=== PATIENT | male | born 1960 | race Caucasian/White ===

== ENCOUNTER 2016-07-19 11:34 | Emergency (ER) | payer OTHER ==
[2016-07-19] MEDS ORDERED: METOPROLOL TARTRATE INJ 5 MG/5 ML VIAL IV ONE ×2 (12:03→12:04)
[2016-07-19] MEDS ORDERED: ALTEPLASE 100 ML ONE (12:12)
[2016-07-19] MEDS ORDERED: SODIUM CHLORIDE 0.9% 1000ML 1,000 ML ONE (12:15)
[2016-07-19] MEDS ORDERED: niCARdipine HCL 2.5 MG/ML AMP IVPB ONE (12:18)
[2016-07-19] MEDS ORDERED: SODIUM CHLORIDE 0.9% 250ML 250 ML ONE (12:19)
--- NOTE | 2016-07-19 12:24 | CT ---
EXAM DESCRIPTION: CT HEAD WITHOUT IV CONTRAST CLINICAL HISTORY: slurred speech COMPARISON: None available TECHNIQUE: Non contrast cranial CT FINDINGS: Ventricles and sulci are unremarkable. There is no hemorrhage or mass. There are no white matter abnormalities detected. The calvarium is unremarkable. The visualized paranasal sinuses and the mastoids are clear. IMPRESSION: No acute intracranial findings. Electronically signed by: Julien Kong MD 07/19/2016 12:23
[2016-07-19] MEDS ORDERED: niCARdipine HCL 25 MG in SODIUM CHLORIDE 0.9% 250ML 240 ML IVPB SCH (12:25)
--- NOTE | 2016-07-19 12:29 | ED.PDOC ---
History of Present Illness - General Chief Complaint: Neuro Symptoms/Deficits Stated Complaint: stroke-like sx's Time Seen by Provider: 07/19/16 12:02 Source: patient Exam Limitations: clinical condition - History of Present Illness Initial Comments: the patient is a 56-year-old male presenting to the emergency room due to slurring of his speech along with progressive weakness of his right side with the upper extremity more so than the lower extremity for approximately 2 and half hours prior to arrival. He denies syncope. No headache. No pain. Blood pressure is significantly elevated at around 220 systolic and upon arrival. Glucose is 250. The patient knows where he is and what is going on. He does have some significant dysarthria as well as some mild expressive aphasia. There is some mild asymmetry in his palatal elevation and mild decrease in his gag reflex. Sensation appears to be mildly decreased in the right hand but otherwise normal throughout. He does not appear to have a visual field defects. he is currently denying having had a stroke in the past. He denies being on significant blood thinners. He denies having recent bleeding problems. No major surgeries recently. Severity: severe Improving Factors: nothing Worsening Factors: nothing Associated Symptoms: weakness Allergies/Adverse Reactions: Allergies Oxytetracycline [From Terramycin Ointment] Allergy (Verified 12/28/14 14:17) Polymyxin B [From Terramycin Ointment] Allergy (Verified 12/28/14 14:17) Penicillins Adverse Reaction (Severe, Verified 12/28/14 14:08) Home Medications: Ambulatory Orders Amlodipine Besylate [Norvasc] 10 mg PO DAILY 12/28/14 Bupropion HCl [Wellbutrin] 100 mg PO DAILY 12/28/14 Clindamycin HCl [Cleocin] 150 mg PO Q6HR #40 cap 12/28/14 Glimepiride 4 mg PO DAILY 12/28/14 Sulfa/Trimeth 800/160 (Ds) Tab [Bactrim DS Tab] 1 ea PO BID #20 tab 12/28/14 Review of Systems - Review of Systems Constitutional: States: weakness EENTM: States: no symptoms reported Respiratory: States: no symptoms reported Cardiology: States: no symptoms reported Gastrointestinal/Abdominal: States: no symptoms reported Genitourinary: States: no symptoms reported Musculoskeletal: States: no symptoms reported Neurological: States: anxiety, numbness, weakness All other Systems: No Change from Baseline Past Medical History (General) - Patient Medical History Hx Stroke: No Hx Congestive Heart Failure: No Hx Hypertension: Yes Hx Diabetes: Yes Hx Gastroesophageal Reflux: - NIDDM Hx Cancer: No Hx Hepatitis C: No - Vaccination History Hx Pneumococcal Vaccination: Yes - Social History Hx Tobacco Use: No Hx Chewing Tobacco Use: No Hx Alcohol Use: No Hx Substance Use: No Hx Substance Use Treatment: No Hx Depression: No Hx Physical Abuse: No Hx Emotional Abuse: No Hx Suspected Abuse: No - Female History Patient : No Family Medical History - Family History Father Hx Family Hypertension: Yes - BOTH PARENTS Hx Family Diabetes: Yes - MOTHER Hx Family Cancer: Yes - ESOPHAGUS Hx Family;Other: MOTHER ALSO HAD STROKE. Physical Exam - Physical Exam General Appearance: Alert, Anxious Eye Exam: bilateral normal Ears, Nose, Throat: hearing grossly normal, other - mild asymmetry and palatal elevation. Mild decrease in gag reflex. Neck: full range of motion, supple Respiratory: chest non-tender, lungs clear, normal breath sounds, no respiratory distress, no accessory muscle use Cardiovascular/Chest: normal peripheral pulses, regular rate, rhythm, no edema Peripheral Pulses: radial,right: 2+, radial,left: 2+ Gastrointestinal/Abdominal: non tender, soft - morbidly obese Rectal Exam: deferred Back Exam: normal inspection Extremity: normal range of motion, non-tender, no calf tenderness, normal capillary refill, other - mild swelling bilaterally. Neurologic: alert, oriented x 3, aphasia, motor weakness - to the right upper and lower extremities., sensory deficit - rimarily to the right upper extremity. Skin Exam: normal color Comments: Vital Signs - 24 hr 07/19/16 11:35 Pulse Rate [ 101 H Left Radial] Respiratory 20 Rate Blood Pressure 159/93 [Left Arm] O2 Sat by Pulse 95 Oximetry repeat blood pressures have been significantly higher. Systolics have been closer to 220. Progress - Progress Progress: 07/19/16 12:33 the patient is a 56-year-old male presenting to the emergency room secondary to symptoms consistent with stroke with right-sided deficits primarily as well as dysarthria and expressive aphasia. Stroke scale measures up to 10. The patient will be transferred to original stroke center. The patient will receive TPA once her blood pressures are back in a safer range. He is approaching 4 hour russ. Mental status appears stable. He does appear to be able to protect his airway. Transfer for higher level of care. - Results/Orders Results/Orders: Laboratory Tests 07/19/16 07/19/16 11:43 12:00 WBC 9.8 RBC 5.00 Hgb 15.0 Hct 44.2 MCV 88.5 MCH 30.0 MCHC 34.0 RDW 12.4 Plt Count 264 MPV 8.5 Absolute Neuts (auto) 6.20 Absolute Lymphs (auto) 2.50 Absolute Monos (auto) 0.80 Absolute Eos (auto) 0.20 Absolute Basos (auto) 0.10 Neutrophils % 63.1 Lymphocytes % 25.1 Monocytes % 8.7 Eosinophils % 2.1 Basophils % 1.0 PT 10.3 INR 0.910 PTT (SP) 29.8 Sodium 137 Potassium 3.4 L Chloride 105 Carbon Dioxide 23 Anion Gap 12.4 BUN 15 Creatinine 0.60 BUN/Creatinine Ratio 25.0 H POC Glucose 259 H Random Glucose 327 H Serum Osmolality 287.3 Calcium 8.6 Magnesium 1.7 L Total Bilirubin 1.2 H Direct Bilirubin 0.2 Indirect Bilirubin 1.0 H AST 27 ALT 21 Alkaline Phosphatase 96 Creatine Kinase 134 Serum Total Protein 7.[address] shows no acute changes. critical care time spent on not otherwise billable procedures 45 minutes - EKG/XRAY/CT CT Ordered: Yes Departure - Departure Clinical Impression: Cerebrovascular accident Qualifiers: CVA mechanism: unspecified Qualifier Code: (I63.9) Cerebral infarction, unspecified Disposition: Transfer to Hospital Home Medications: Ambulatory Orders Amlodipine Besylate [Norvasc] 10 mg PO DAILY 12/28/14 Bupropion HCl [Wellbutrin] 100 mg PO DAILY 12/28/14 Clindamycin HCl [Cleocin] 150 mg PO Q6HR #40 cap 12/28/14 Glimepiride 4 mg PO DAILY 12/28/14 Sulfa/Trimeth 800/160 (Ds) Tab [Bactrim DS Tab] 1 ea PO BID #20 tab 12/28/14 Transfer to Outside Facility - Transfer Information Accepting Provider:: dr cleaning Accepting Facility: [facility] Reason for Transfer: required specialist not available
[2016-07-19] MEDS ORDERED: ALTEPLASE (TPA) 100 MG/100 ML VIAL IV ONE (12:30)
[2016-07-19] MEDS ORDERED: INSULIN, REG.(HUMAN) 100 U/ML VIAL SUBCU ONE (12:39)
[2016-07-19] MEDS ORDERED: SODIUM CHLORIDE 0.9% 1000ML 1,000 ML IVS ONE (13:02)
[2016-07-19 13:32] VITALS: TEMP 97.8
[2016-07-19 13:46] VITALS: BP 233/108; O2SAT 97
[2016-07-21] MEDS ORDERED: ALTEPLASE (TPA) 100 MG/100 ML VIAL IV ONE (12:33)
== END 2016-07-19 13:33 | disposition short-term general hospital (02) ==
LOC: ER 11:34
DX: I63.9 Cerebral infarction, unspecified (principal); E11.9 Type 2 diabetes mellitus without complications; I10 Essential (primary) hypertension; Z82.3 Family history of stroke; Z88.0 Allergy status to penicillin; Z88.8 Allergy status to other drugs, medicaments and biological substances; Z79.899 Other long term (current) drug therapy
CPT/HCPCS: 36415; 70450; 80048; 80076; 82550; 82553; 82948; 84484; 85025; 85610; 85730; 93005; J2060; J2997; J7030; J7050

== ENCOUNTER 2017-08-12 18:16 | Emergency (ER) | payer BC, OTHER ==
[2017-08-12 18:34] VITALS: O2SAT 97
--- NOTE | 2017-08-12 18:51 | ED.PDOC ---
History of Present Illness - General Chief Complaint: GI Problem Stated Complaint: foreign object to rectum Time Seen by Provider: 08/12/17 18:46 Information Source: patient - History of Present Illness Initial Comments: Kyler Garza 57 y/o male stated had inserted a footlong flashlight inside his rectum 1 1/2 hours ago Abdominal Pain Onset Location: other - see hpi Pain Radiation: no radiation Improving Factors: nothing Worsening Factors: nothing Associated Symptoms: other - pain rectum Review of Systems - Review of Systems Constitutional: States: no symptoms reported EENTM: States: no symptoms reported Respiratory: States: no symptoms reported Cardiology: States: no symptoms reported Gastrointestinal/Abdominal: States: see HPI Genitourinary: States: no symptoms reported Musculoskeletal: States: no symptoms reported Skin: States: no symptoms reported All other Systems: Reviewed and Negative, No Change from Baseline Past Medical History (General) - Patient Medical History Hx Stroke: Yes Hx Congestive Heart Failure: No Hx Hypertension: Yes Hx Diabetes: Yes Hx Gastroesophageal Reflux: - NIDDM Hx Cancer: No Hx Hepatitis C: No Surgical History: other - lower back - Vaccination History Hx Influenza Vaccination: Yes Hx Pneumococcal Vaccination: Yes - Social History Hx Tobacco Use: No Hx Chewing Tobacco Use: No Hx Alcohol Use: No Hx Substance Use: No Hx Substance Use Treatment: No Hx Depression: No Hx Physical Abuse: No Hx Emotional Abuse: No Hx Suspected Abuse: No - Female History Patient : No Family Medical History - Family History Father Hx Family Hypertension: Yes - BOTH PARENTS Hx Family Diabetes: Yes - MOTHER Hx Family Cancer: Yes - ESOPHAGUS Hx Family;Other: MOTHER ALSO HAD STROKE. Physical Exam - Physical Exam General Appearance: Alert, Anxious, No apparent distress Eyes, Ears, Nose, Throat Exam: normal ENT inspection Neck: non-tender, supple Respiratory: lungs clear, normal breath sounds Cardiovascular/Chest: normal peripheral pulses, regular rate, rhythm, no murmur Peripheral Pulses: No deficit Gastrointestinal/Abdominal: non tender, soft, no organomegaly Rectal Exam: other - hard metallic rounded FB 3 cms. from anal verge Back Exam: no CVA tenderness, no vertebral tenderness Extremity: no pedal edema, no calf tenderness Neurologic: alert, oriented x 3 Skin Exam: normal color, warm/dry Progress - Progress Progress: 08/12/17 19:38 Last Vital Signs Temp 98.1 F 08/12/17 18:25 Pulse 102 H 08/12/17 18:25 Resp 20 08/12/17 18:25 BP 140/82 08/12/17 18:25 Pulse Ox 97 08/12/17 18:25 - Results/Orders Results/Orders: Several attempts at removing the impacted foreign object in his rectum unable to do it even when patient is bearing down;noted some rectal bleeding during the procedure. Departure - Departure Clinical Impression: Foreign body in anus and rectum, initial encounter Time of Disposition: 19:45 Disposition: Transfer to Hospital Departure Forms: Patient Portal Self Enrollment Referrals: Fdai Huerta MD [Primary Care Provider] - 1-2 Weeks Home Medications: Ambulatory Orders Amlodipine Besylate [Norvasc] 10 mg PO DAILY 12/28/14 Bupropion HCl [Wellbutrin] 100 mg PO DAILY 12/28/14 Glimepiride 4 mg PO DAILY 12/28/14 Fenofibrate [Tricor] 145 mg PO DAILY 07/19/16 Losartan Potassium 100 mg PO BID 07/19/16 Methocarbamol [Robaxin] 750 mg PO TID 07/19/16 Rosuvastatin Calcium [Crestor] 10 mg PO DAILY 07/19/16 Simvastatin [Zocor] 20 mg PO BEDTIME 07/19/16 Transfer to Outside Facility - Transfer Information Accepting Provider:: D/W Dr. De Los Santos-MARK/ Accepting Facility: [facility] Reason for Transfer: required specialist not available
[2017-08-12 20:13] VITALS: BP 129/64; TEMP 98.2
--- NOTE | 2017-08-12 20:23 | RAD ---
EXAM DESCRIPTION: Abdomen 1 View CLINICAL HISTORY: 57 years, Male, foreign body COMPARISON: None. FINDINGS: Single view frontal lower abdominal and pelvic radiograph and supine positioning. A large foreign body having the appearance of a flashlight projects over the midline pelvis and abdomen. A structure measures 25 cm in length and 6.2 cm in maximal transverse dimension. The handle of the flashlight is cranially located and the end of the flashlight (the wider portion) is distally located (closer to the anus). Limited evaluation for pneumoperitoneum. No overt pneumoperitoneum is seen. Previous lumbosacral fusion. Moderate amount of colonic stool. IMPRESSION: Large foreign body presumably in the rectum. This foreign body has the appearance of a flashlight and is oriented with the handle pointed cranially and the distal end (largest portion) pointed towards the anus. Measurements as above. Critical Communication: Emergent findings were discussed by Dr. Vaughn directly with Dr. Deshpande on 08/12/2017 8:19 PM [employer]. Electronically signed by: Helen Vaughn MD 08/12/2017 8:22 PM [employer]
== END 2017-08-12 20:26 | disposition short-term general hospital (02) ==
LOC: ER 18:16
DX: T18.5XXA Foreign body in anus and rectum, initial encounter (principal); X58.XXXA Exposure to other specified factors, initial encounter; Y92.9 Unspecified place or not applicable

== ENCOUNTER → 2018-03-01 | Outpatient (CLI) | payer BC | LOC: GMAH 11:26 | PROVIDERS: ATTEND Family Medicine | DX: Z00.00 Encounter for general adult medical examination without abnormal findings (principal); Z12.5 Encounter for screening for malignant neoplasm of prostate ==

== ENCOUNTER 2018-03-04 19:29 | Emergency (ER) | payer BC ==
--- NOTE | 2018-03-04 19:57 | ED.PDOC ---
History of Present Illness - General Chief Complaint: Back Pain or Injury Stated Complaint: low back pain/spasms Time Seen by Provider: 03/04/18 19:41 Source: patient Exam Limitations: no limitations - History of Present Illness Initial Comments: Patient presents with two days of low back pain. It goes "all the way across" and feels cramping in nature. Does not radiate down the legs. Worse with movement, especially walking, better with rest. Has had previous episodes. Sometimes he uses a walker when it hurts. He has had a CVA and occasionally uses a walker when his back pain is worse. He says he had mild right sided weakness but that has not changed today. No saddle anesthesia nor incontinence. No other complaints. Timing/Duration: other - two days Quality/Severity: moderate Back Pain Location: lumbar spine Back Pain Radiation: other - none Method of Injury/Prior Injury: unknown Improving Factors: rest Worsening Factors: movement Associated Symptoms: denies symptoms Allergies/Adverse Reactions: Allergies Cephalexin Allergy (Verified 03/04/18 19:50) Lincomycin Allergy (Verified 03/04/18 19:50) Oxytetracycline [From Terramycin Ointment] Allergy (Verified 03/04/18 19:50) Polymyxin B [From Terramycin Ointment] Allergy (Verified 03/04/18 19:50) Penicillins Adverse Reaction (Severe, Verified 03/04/18 19:50) Home Medications: Ambulatory Orders Glimepiride 4 mg PO DAILY 12/28/14 Losartan Potassium 100 mg PO BID 07/19/16 Acetaminophen W/ Codeine [Tylenol W/ CODEINE #3] 1 ea PO Q6HRS #20 03/04/18 Carvedilol 25 mg PO 03/04/18 Cyclobenzaprine HCl [Flexeril] 10 mg PO TID #20 tab 03/04/18 Doxazosin Mesylate 2 mg PO 03/04/18 Famotidine 20 mg PO 03/04/18 Furosemide 40 mg PO 03/04/18 Hydralazine HCl 50 mg PO 03/04/18 Hydrochlorothiazide 25 mg PO 03/04/18 Lantus Solostar 03/04/18 Meloxicam 7.5 mg PO 03/04/18 Nifedipine [Nifedical Xl] 60 mg PO 03/04/18 Spironolactone 25 mg PO 03/04/18 cloNIDine PATCH 0.2 MG/24HR [[id number] Patch] 03/04/18 Review of Systems - Review of Systems Constitutional: States: no symptoms reported EENTM: States: no symptoms reported Respiratory: States: no symptoms reported Cardiology: States: no symptoms reported Gastrointestinal/Abdominal: States: no symptoms reported, abdominal pain Musculoskeletal: States: see HPI Skin: States: no symptoms reported Neurological: States: see HPI Endocrine: States: no symptoms reported Hematologic/Lymphatic: States: no symptoms reported Past Medical History (General) - Patient Medical History Hx Seizures: No Hx Stroke: Yes Hx Dementia: No Hx Asthma: Yes Hx of COPD: No Hx Cardiac Disorders: Yes - stroke Jun 2016 Hx Congestive Heart Failure: No Hx Pacemaker: No Hx Hypertension: Yes Hx Thyroid Disease: No Hx Diabetes: Yes Hx Gastroesophageal Reflux: Yes - NIDDM Hx Renal Disease: No Hx Cancer: No Hx of HIV: No Hx Hepatitis C: No Hx MRSA: Yes - wound - Vaccination History Hx Tetanus, Diphtheria Vaccination: No Hx Influenza Vaccination: Yes Hx Pneumococcal Vaccination: Yes - Social History Hx Tobacco Use: No Hx Chewing Tobacco Use: No Hx Alcohol Use: No Hx Substance Use: No Hx Substance Use Treatment: No Hx Depression: No Hx Physical Abuse: No Hx Emotional Abuse: No Hx Suspected Abuse: No - Female History Patient : No Family Medical History - Family History Father Living Status: Hx Family Hypertension: Yes - BOTH PARENTS Hx Family Diabetes: Yes - MOTHER Hx Family Cancer: Yes - ESOPHAGUS Hx Family;Other: MOTHER ALSO HAD STROKE. 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 Hardware from previous surgery was intact. UA wnl. Patient was instructed to call his regular doctor in the morning to get an appointment for possible referral to a physical therapist or neurosurgeon. E.R. warnings given. Questions were elicited and answered. Patient voiced understanding and agreement with the plan. RX for Flexeril and Tylenol #3 given. Departure - Departure Clinical Impression: Back spasm Disposition: Discharge to Home or Self Care Condition: Good Departure Forms: ED Discharge - Pt. Copy, Patient Portal Self Enrollment Instructions: DI for Low Back Pain Diet: other - as directed by your regular doctor Activity: increase activity as tolerated Referrals: Fadi Huerta MD [Primary Care Provider] - 1-2 Weeks Prescriptions: Acetaminophen W/ Codeine [Tylenol W/ CODEINE #3] 1 ea PO Q6HRS #20 Cyclobenzaprine HCl [Flexeril] 10 mg PO TID #20 tab Home Medications: Ambulatory Orders Glimepiride 4 mg PO DAILY 12/28/14 Losartan Potassium 100 mg PO BID 07/19/16 Acetaminophen W/ Codeine [Tylenol W/ CODEINE #3] 1 ea PO Q6HRS #20 03/04/18 Carvedilol 25 mg PO 03/04/18 Cyclobenzaprine HCl [Flexeril] 10 mg PO TID #20 tab 03/04/18 Doxazosin Mesylate 2 mg PO 03/04/18 Famotidine 20 mg PO 03/04/18 Furosemide 40 mg PO 03/04/18 Hydralazine HCl 50 mg PO 03/04/18 Hydrochlorothiazide 25 mg PO 03/04/18 Lantus Solostar 03/04/18 Meloxicam 7.5 mg PO 03/04/18 Nifedipine [Nifedical Xl] 60 mg PO 03/04/18 Spironolactone 25 mg PO 03/04/18 cloNIDine PATCH 0.2 MG/24HR [[id number] Patch] 03/04/18 Additional Instructions: Call your regular doctor in the morning to get an appointment regarding referral to physical therapy or neurosurgery. Take medications as prescribed.
[2018-03-04] MEDS: KETOROLAC TROMETHAMINE INJ 30 MG/ML VIAL IV ONE (20:50)
[2018-03-04] MEDS: ORPHENADRINE CITRATE 30 MG/ML AMP IV ONE (20:50)
[2018-03-04] MEDS: SODIUM CHLORIDE 0.9% 500ML 500 ML IVS ONE (20:51)
--- NOTE | 2018-03-04 22:21 | CT ---
PROCEDURE: Lumbar Spine CLINICAL HISTORY: 58 years ,Male ,low back pain bilaterally COMPARISON: None. TECHNIQUE: Contiguous axial images obtained through the lumbar spine without IV contrast. Coronal and sagittal reformatted images obtained. This exam was performed according to our department optimization program which includes automated exposure control, adjustment of the mA and/or kv according to patient size and/or use of iterative reconstruction technique. FINDINGS: Mild curvature in the lumbar spine convex left which could be positional. There are bilateral pars defects at L5-S1 with mild anterolisthesis of L5 on S1. There are changes from previous anterior and posterior fusion at this level. The posterior fusion hardware appears intact. No acute fractures are identified. No disc herniations are identified. There are osteophytes projecting from the endplates at L5-S1 and there are degenerative changes in the facets. No significant spinal stenosis. There is severe bilateral neural foraminal stenosis. IMPRESSION: There are bilateral pars defects at L5-S1 with grade 1 anterolisthesis. There are changes at L5-S1 from previous anterior and posterior fusion. There are degenerative changes of the endplates and facets at this level with resultant severe bilateral neural foraminal stenosis.. Electronically signed by: Raul Ferreira MD 03/04/2018 10:20 PM CDT
[2018-03-05 00:26] VITALS: BP 146/71; TEMP 98.2; O2SAT 97
== END 2018-03-05 00:26 | disposition home or self-care (01) ==
LOC: ER 19:29
DX: M62.830 Muscle spasm of back (principal); K21.9 Gastro-esophageal reflux disease without esophagitis; I10 Essential (primary) hypertension; E11.9 Type 2 diabetes mellitus without complications; J45.909 Unspecified asthma, uncomplicated; Z98.890 Other specified postprocedural states; Z86.73 Personal history of transient ischemic attack (TIA), and cerebral infarction without residual deficits; Z79.899 Other long term (current) drug therapy; Z88.8 Allergy status to other drugs, medicaments and biological substances; Z88.0 Allergy status to penicillin
CPT/HCPCS: 36415; 72131; 80048; 81001; 85025; J1885; J2360; J7040

== ENCOUNTER 2018-03-06 17:24 | Observation (INO) | payer BC ==
--- NOTE | 2018-03-06 17:30 | ED.PDOC ---
History of Present Illness - General Chief Complaint: Back Pain or Injury Stated Complaint: low back pain Time Seen by Provider: 03/06/18 17:26 Source: patient Exam Limitations: no limitations - History of Present Illness Initial Comments: Kyler Garza 58 y/o male brought by ems with severe sharp low back pain this afternoon and patient unable to get up from his bed because of the pain.Patient lives by himself and has previous history of cva with right hemiparesis.Had previous lumbar fusion in the past-[address](2017) showed bilateral pars defect with mild anterolisthesis grade 1 with severe foraminal stenosis done on his visit 2 days ago with same symptoms sent home with pain medication stated not helping.No bowel or bladder dysfunction.Pain radiates down to both feet right>left. Timing/Duration: days - 2 Quality/Severity: sharpness Back Pain Location: lumbar spine Back Pain Radiation: feet Method of Injury/Prior Injury: other - see hpi Improving Factors: rest Worsening Factors: movement Associated Symptoms: numbness in legs/feet, lower back pain Allergies/Adverse Reactions: Allergies Cephalexin Allergy (Verified 03/04/18 19:50) Lincomycin Allergy (Verified 03/04/18 19:50) Oxytetracycline [From Terramycin Ointment] Allergy (Verified 03/04/18 19:50) Polymyxin B [From Terramycin Ointment] Allergy (Verified 03/04/18 19:50) Penicillins Adverse Reaction (Severe, Verified 03/04/18 19:50) Home Medications: Ambulatory Orders Glimepiride 4 mg PO DAILY 12/28/14 Losartan Potassium 100 mg PO BID 07/19/16 Acetaminophen W/ Codeine [Tylenol W/ CODEINE #3] 1 ea PO Q6HRS #20 03/04/18 Carvedilol 25 mg PO 03/04/18 Cyclobenzaprine HCl [Flexeril] 10 mg PO TID #20 tab 03/04/18 Doxazosin Mesylate 2 mg PO 03/04/18 Famotidine 20 mg PO 03/04/18 Furosemide 40 mg PO 03/04/18 Hydralazine HCl 50 mg PO 03/04/18 Hydrochlorothiazide 25 mg PO 03/04/18 Lantus Solostar 03/04/18 Meloxicam 7.5 mg PO 03/04/18 Nifedipine [Nifedical Xl] 60 mg PO 03/04/18 Spironolactone 25 mg PO 03/04/18 cloNIDine PATCH 0.2 MG/24HR [Dgosqxii-FCK-4 Patch] 03/04/18 Review of Systems - Review of Systems Constitutional: States: no symptoms reported EENTM: States: no symptoms reported Respiratory: States: no symptoms reported Cardiology: States: no symptoms reported Gastrointestinal/Abdominal: States: no symptoms reported Genitourinary: States: no symptoms reported Musculoskeletal: States: see HPI, back pain Skin: States: no symptoms reported Neurological: States: paresthesia Endocrine: States: no symptoms reported Past Medical History (General) - Patient Medical History Hx Seizures: No Hx Stroke: Yes Hx Dementia: No Hx Asthma: Yes Hx of COPD: No Hx Cardiac Disorders: Yes - stroke Jun 2016 Hx Congestive Heart Failure: No Hx Pacemaker: No Hx Hypertension: Yes Hx Thyroid Disease: No Hx Diabetes: Yes Hx Gastroesophageal Reflux: Yes - NIDDM Hx Renal Disease: No Hx Cancer: No Hx of HIV: No Hx Hepatitis C: No Hx MRSA: Yes - wound Surgical History: other - lumbar fusion - Vaccination History Hx Tetanus, Diphtheria Vaccination: No Hx Influenza Vaccination: Yes Hx Pneumococcal Vaccination: Yes - Social History Hx Tobacco Use: No Hx Chewing Tobacco Use: No Hx Alcohol Use: No Hx Substance Use: No Hx Substance Use Treatment: No Hx Depression: No Hx Physical Abuse: No Hx Emotional Abuse: No Hx Suspected Abuse: No - Female History Patient : No Family Medical History - Family History Father Living Status: Hx Family Hypertension: Yes - BOTH PARENTS Hx Family Diabetes: Yes - MOTHER Hx Family Cancer: Yes - ESOPHAGUS Hx Family;Other: MOTHER ALSO HAD STROKE. Physical Exam - Physical Exam General Appearance: Alert, Anxious, No apparent distress, Obese Eyes, Ears, Nose, Throat Exam: normal ENT inspection Neck Exam: non-tender, full range of motion, normal alignment, normal inspection Cardiovascular/Respiratory: regular rate, rhythm, no M/R/G, normal peripheral pulses, normal breath sounds Peripheral Pulses: radial,right: 2+, radial,left: 2+ Gastrointestinal/Abdominal: non tender, soft Back Exam: no CVA tenderness, no vertebral tenderness Extremity Exam: normal range of motion, non-tender, no pedal edema Neurologic: no motor/sensory deficits, alert, oriented x 3, other - decrease patellar rflex bilaterally +1 Skin Exam: normal color, warm/dry Progress - Progress Progress: 03/06/18 20:34 Vital Signs - 8 hr 03/06/18 03/06/18 17:28 19:25 Temperature 99.9 F H 97.4 F L Pulse Rate [ 90 78 Left Ulnar] Respiratory 20 18 Rate Blood Pressure 130/81 123/79 [Left Arm] O2 Sat by Pulse 96 94 L Oximetry - Results/Orders Results/Orders: 03/06/18 18:34 IV Care:Saline Lock per Protoc QSHIFT URINALYSIS Stat Laboratory Results - last 24 hr 03/06/18 03/06/18 18:00 18:00 WBC 12.6 H RBC 3.96 L Hgb 12.2 L Hct 36.4 L MCV 91.7 MCH 30.8 MCHC 33.7 RDW 12.0 Plt Count 351 MPV 7.9 Absolute Neuts (auto) 9.60 H Absolute Lymphs (auto) 1.60 Absolute Monos (auto) 1.30 H Absolute Eos (auto) 0.00 Absolute Basos (auto) 0.10 Neutrophils % 76.0 Lymphocytes % 12.3 L Monocytes % 10.4 H Eosinophils % 0.3 L Basophils % 1.0 Sodium 141 Potassium 3.7 Chloride 103 Carbon Dioxide 25 Anion Gap 16.7 BUN 19 H Creatinine 0.95 BUN/Creatinine Ratio 20.0 Random Glucose 196 H Serum Osmolality 288.9 Calcium 8.8 Total Bilirubin 1.0 AST 19 ALT 13 Alkaline Phosphatase 70 Serum Total Protein 7.5 Albumin 3.2 Globulin 4.3 H Albumin/Globulin Ratio 0.7 L Departure - Departure Clinical Impression: Acute exacerbation of chronic low back pain, Radiculitis, lumbosacral, Foraminal stenosis of lumbosacral region, Diabetes 1.5, managed as type 1, CVA, old, hemiparesis, History of lumbar fusion, Obesity, morbid, BMI 40.0-49.9 Time of Disposition: 20:37 Disposition: Admit Patient Condition: Fair Departure Forms: Patient Portal Self Enrollment Referrals: Fadi Huerta MD [Primary Care Provider] - 1-2 Weeks Home Medications: Ambulatory Orders Glimepiride 4 mg PO DAILY 12/28/14 Losartan Potassium 100 mg PO BID 07/19/16 Acetaminophen W/ Codeine [Tylenol W/ CODEINE #3] 1 ea PO Q6HRS #20 03/04/18 Carvedilol 25 mg PO 03/04/18 Cyclobenzaprine HCl [Flexeril] 10 mg PO TID #20 tab 03/04/18 Doxazosin Mesylate 2 mg PO 03/04/18 Famotidine 20 mg PO 03/04/18 Furosemide 40 mg PO 03/04/18 Hydralazine HCl 50 mg PO 03/04/18 Hydrochlorothiazide 25 mg PO 03/04/18 Lantus Solostar 03/04/18 Meloxicam 7.5 mg PO 03/04/18 Nifedipine [Nifedical Xl] 60 mg PO 03/04/18 Spironolactone 25 mg PO 03/04/18 cloNIDine PATCH 0.2 MG/24HR [Qvanuhmo-OLZ-2 Patch] 03/04/18 Decision To Admit - Decistion To Admit Decision to Admit Reason: Admit from ER - pain control Decision to Admit Date: 03/06/18 - D/W Romaine Red-ANP/Hospitalist Decision to Admit Time: 20:38
[2018-03-06] MEDS ORDERED: ORPHENADRINE CITRATE 30 MG/ML AMP IV ONE (18:34)
[2018-03-06] MEDS ORDERED: MORPHINE SULFATE INJ 10 MG/ML VIAL IV ONE (18:34)
--- NOTE | 2018-03-06 22:03 | HP ---
SUPERVISING PHYSICIAN: Júnior Herrera MD CHIEF COMPLAINT: Lower back pain. HISTORY OF PRESENT ILLNESS: This is a 58-year-old male patient who came to the Emergency Room on the date of admission with low back pain. He does have a significant history of chronic low back pain. On , he saw his primary care physician, Dr. Huerta, and at that time his back did not hurt anymore than usual. During the next several days, he does not remember doing any activity that caused an exacerbation of his back pain, nor does he remember any injury, but on Monday he began to have pain in his back that was so significant that he was in bed. By Monday, he came to the Emergency Room because of the intractable pain. At that time, he was given some pain medications as well as muscle relaxers. He said the muscle relaxers helped more than anything. He does take Tylenol #3 at home and they did not help. He was given a prescription for Flexeril and sent home. He was unable to get it filled and then again came to the Emergency Room on the day of admission due to continued lower back pain. It was debilitating enough that he could not get out of bed. He was admitted for observation and pain control to the Medical/ Surgical Floor. PAST MEDICAL HISTORY: 1. Asthma. 2. Degenerative lumbar disc disease. 3. Hypertension. 4. Diabetes mellitus, type 2. 5. Hyperlipidemia. 6. Morbid obesity. 7. History of cerebrovascular accident with mild residual right sided weakness. PAST SURGICAL HISTORY: 1. Back surgery. OUTPATIENT MEDICATIONS: Per the EMR and awaiting verification. ALLERGIES: KEFLEX, VANCOMYCIN, PENICILLIN, TERRAMYCIN. SOCIAL HISTORY: He is a retired reset merchandiser. He lives alone. He denies any tobacco, ETOH or illicit drug use. REVIEW OF SYSTEMS: GENERAL: Denies fever, fatigue or weight changes. HEENT: Denies sinus symptoms, ear pain, vision changes or sore throat. RESPIRATORY: Denies wheezing, coughing or shortness of breath. CARDIAC: Denies chest pain, palpitations or tachycardia. GASTROINTESTINAL: Denies nausea, vomiting, diarrhea, constipation. GENITOURINARY: Denies hematuria, dysuria or polyuria. MUSCULOSKELETAL: As per history of present illness. SKIN: Denies lesions or rashes. NEUROLOGIC: Positive for some mild paresthesias to his right lower extremity, but otherwise negative for headaches or seizures. PHYSICAL EXAMINATION: VITAL SIGNS: Temperature 98.1. Pulse 84. Blood pressure 123/74. Respiratory rate 20. O2 saturation 92% on room air. GENERAL: This is an obese male patient who is lying in his hospital bed. He is in no acute distress. HEENT: Normocephalic, atraumatic. Pupils are equal and reactive. Oropharynx is clear. NECK: Supple without mass. RESPIRATORY: Essentially clear to auscultation bilaterally, but diminished at the bases. CARDIOVASCULAR: Regular rate and rhythm. GASTROINTESTINAL: Abdomen is soft, nondistended, nontender. Bowel sounds are positive. EXTREMITIES: No cyanosis, clubbing or edema. He does move his right side, but his right food service attendant is slightly less than his left food service attendant. NEUROLOGIC: Awake, alert and oriented times three. LABORATORY: WBCs 12.6, hemoglobin 12.2, hematocrit 36.4. Electrolytes are basically within normal limits. Blood sugars have run between 133 and 173. Liver enzymes are basically within normal limits. Urinalysis shows 15 urine ketones and a small amount of urine bilirubin. MRSA culture pending. All other labs and films have been reviewed via the EMR. IMPRESSION: 1. Intractable low back pain with a significant history of chronic low back pain with no apparent recent injury or trauma. 2. Diabetes mellitus, type 2. 3. Hyperlipidemia. 4. History of left sided cerebrovascular accident with mild right sided weakness. 5. Hypertension. PLAN: We will place the patient in observation. [facility] from [place] has come to evaluate him. At this time, we will do pain control and restart his home medications as well as Lovenox for DVT prophylaxis and Protonix for ulcer prophylaxis. Hopefully once his pain is under control, we can discharge him this afternoon or in the morning to [facility]. Until then, we will continue to monitor the patient closely and follow as needed. Dr. Herrera is the collaborating physician and available for consultation. #[id number] [facility]
[2018-03-06] MEDS ORDERED: ACETAMINOPHEN 325 MG TAB PO PRN (23:03)
[2018-03-06] MEDS ORDERED: SODIUM CHLORIDE 0.9% (FLUSH) 10 ML SYG IV PRN (23:03)
[2018-03-06] MEDS ORDERED: MORPHINE SULFATE INJ 10 MG/ML VIAL IV PRN (23:03)
[2018-03-06] MEDS ORDERED: GLUCAGON INJ 1 MG VIAL SUBCU PRN (23:14)
[2018-03-06] MEDS ORDERED: DEXTROSE 50% 25 GM/50 ML SYG IV PRN (23:14)
[2018-03-06] MEDS ORDERED: IV SET AND CAP CHANGE INJ INJ SCH (23:30)
[2018-03-07] MEDS: HYDROcodone 5MG/APAP 325MG 1 EA TAB PO PRN (05:50)
[2018-03-07] MEDS: glipiZIDE 5 MG TAB PO SCH (06:56)
[2018-03-07] MEDS: INSULIN LISPRO 100 UNITS/ML PEN SUBCU SCH ×4 (07:39→21:27)
[2018-03-07] MEDS ORDERED: NON-FORMULARY MEDICATION 1 EA MIS (Ferrous Sulfate [Ferrous Sulfate] 325 MG) PO SCH (09:00)
[2018-03-07] MEDS ORDERED: HYDRALAZINE HCL 100 MG PO SCH (09:00)
[2018-03-07] MEDS ORDERED: cloNIDine PATCH 0.2 MG/24HR 0.2 MG PATCH TD SCH (09:00)
[2018-03-07] MEDS ORDERED: NIFEDIPINE 60 MG PO SCH (09:00)
[2018-03-07] MEDS ORDERED: NON-FORMULARY MEDICATION 1 EA MIS (Carvedilol [Carvedilol] 25 MG) PO SCH (09:00)
[2018-03-07] MEDS ORDERED: NON-FORMULARY MEDICATION 1 EA MIS (Losartan Potassium [Losartan Potassium] 50 MG) PO SCH (09:00)
[2018-03-07] MEDS: CYCLOBENZAPRINE HCL 10 MG TAB PO PRN (09:25)
[2018-03-07] MEDS ORDERED: CARVEDILOL 12.5 MG TAB ONE (09:43)
[2018-03-07] MEDS ORDERED: cloNIDine PATCH 0.1MG/24HR 0.1 MG PATCH TD ONE (09:43)
[2018-03-07] MEDS ORDERED: cloNIDine PATCH 0.2 MG/24HR 0.2 MG PATCH TD ONE (09:43)
[2018-03-07] MEDS ORDERED: FERROUS SULFATE 325 MG TAB ONE (09:43)
[2018-03-07] MEDS ORDERED: LOSARTAN POTASSIUM 25 MG TAB ONE (09:44)
[2018-03-07] MEDS ORDERED: NIFEdipine XL 30 MG TAB PO ONE ×2 (09:45→09:56)
[2018-03-07] MEDS: ASPIRIN (ENTERIC COATED) 325 MG TAB PO SCH (09:49)
[2018-03-07] MEDS: SPIRONOLACTONE 25 MG TAB PO SCH (09:49)
[2018-03-07] MEDS: hydroCHLOROthiazide 25 MG TAB PO SCH (09:50)
[2018-03-07] MEDS: LORATADINE 10 MG TAB PO SCH (09:50)
[2018-03-07] MEDS: FUROSEMIDE 40 MG TAB PO SCH (09:50)
[2018-03-07] MEDS: MELOXICAM 7.5 MG TAB PO SCH ×2 (09:50→21:24)
[2018-03-07] MEDS: METHOCARBAMOL 750 MG TAB PO SCH ×3 (09:51→21:24)
[2018-03-07] MEDS: FAMOTIDINE 20 MG TAB PO SCH ×2 (09:51→21:23)
[2018-03-07] MEDS: KETOROLAC TROMETHAMINE INJ 30 MG/ML VIAL IV SCH ×3 (09:55→21:25)
[2018-03-07] MEDS: FERROUS SULFATE 325 MG TAB PO SCH ×2 (13:31→17:20)
[2018-03-07] MEDS ORDERED: NON-FORMULARY MEDICATION 1 EA MIS (Atorvastatin Calcium [Lipitor] 40 MG) PO SCH (21:00)
[2018-03-07] MEDS: DOXAZOSIN MESYLATE 2 MG TAB PO SCH (21:22)
[2018-03-07] MEDS: CARVEDILOL 12.5 MG TAB PO SCH (21:22)
[2018-03-07] MEDS: ATORVASTATIN 20 MG TAB PO SCH (21:23)
[2018-03-07] MEDS: glipiZIDE EXTENDED REL (XL) 2.5 MG TAB PO SCH (21:23)
[2018-03-07] MEDS: NIFEdipine XL 30 MG TAB PO SCH (21:23)
[2018-03-07] MEDS: LOSARTAN POTASSIUM 25 MG TAB PO SCH (21:23)
[2018-03-07] MEDS: SODIUM CHLORIDE 0.9% (FLUSH) 10 ML SYG IV SCH (21:24)
[2018-03-08] MEDS: glipiZIDE 5 MG TAB PO SCH (06:47)
[2018-03-08] MEDS ORDERED: CARVEDILOL 12.5 MG TAB PO ONE (09:00)
[2018-03-08] MEDS ORDERED: LOSARTAN POTASSIUM 25 MG TAB PO ONE (09:00)
[2018-03-08] MEDS: FERROUS SULFATE 325 MG TAB PO SCH ×3 (09:05→17:21)
[2018-03-08] MEDS: INSULIN LISPRO 100 UNITS/ML PEN SUBCU SCH ×4 (09:05→20:57)
[2018-03-08] MEDS: hydroCHLOROthiazide 25 MG TAB PO SCH (09:07)
[2018-03-08] MEDS: LOSARTAN POTASSIUM 25 MG TAB PO SCH ×2 (09:07→20:56)
[2018-03-08] MEDS: FAMOTIDINE 20 MG TAB PO SCH ×2 (09:07→20:57)
[2018-03-08] MEDS: SPIRONOLACTONE 25 MG TAB PO SCH (09:07)
[2018-03-08] MEDS: METHOCARBAMOL 750 MG TAB PO SCH ×3 (09:07→20:57)
[2018-03-08] MEDS: LORATADINE 10 MG TAB PO SCH (09:07)
[2018-03-08] MEDS: FUROSEMIDE 40 MG TAB PO SCH (09:08)
[2018-03-08] MEDS: ASPIRIN (ENTERIC COATED) 325 MG TAB PO SCH (09:08)
[2018-03-08] MEDS: MELOXICAM 7.5 MG TAB PO SCH ×2 (09:08→20:57)
[2018-03-08] MEDS: SODIUM CHLORIDE 0.9% (FLUSH) 10 ML SYG IV SCH ×2 (09:08→20:57)
[2018-03-08] MEDS: NIFEdipine XL 30 MG TAB PO SCH ×3 (09:08→20:56)
[2018-03-08] MEDS: CARVEDILOL 12.5 MG TAB PO SCH ×2 (09:08→20:56)
[2018-03-08] MEDS: CYCLOBENZAPRINE HCL 10 MG TAB PO PRN (09:09)
--- NOTE | 2018-03-08 14:52 | CT ---
EXAM DESCRIPTION: Lumbar Spine CLINICAL HISTORY: 58 years, Male, lower back pain COMPARISON: None TECHNIQUE: Lumbar CT with thin-section axial imaging with reconstructed MPR images reviewed as well. This exam was performed according to our departmental dose-optimization program, which includes automated exposure control, adjustment of the mA and/or kV according to patient size and/or use of iterative reconstruction technique. Image quality is significantly diminished by the patient's very large body habitus. FINDINGS: Moderate tilting of the spine towards the left is present with previous internal fixation with bilateral pedicle screws and vertical links at L5-S1 with grade 1 spondylolisthesis and severe degenerative disc disease with endplate changes and disc space narrowing. Severe posterior element degenerative change and hypertrophy is present with what appears to be incompletely healed bilateral L5 pars defects. Severe facet arthropathy at L5-S1 bilaterally and moderate changes at L4-5 is present. No evidence of hardware failure is noted. Moderate right and less severe left facet arthropathy at L4-5 is present with normal alignment and no compromise of the central canal. An essentially normal appearance at L3-4 and at L2-3 and at L1-2 is present as well as a relatively normal appearance at the thoracolumbar junction. Large disc herniation is not apparent. Disc contour at L5-S1 is obscured by the metallic artifact. IMPRESSION: 1. Postoperative changes L5-S1 with markedly degenerative narrowed irregular L5-S1 disc space without evidence of complete anterior bony fusion with grade 1 spondylolisthesis. Posterior fixation with pedicle screws and vertical links bilaterally is present with what appear to be persistent L5 pars defects. 2. Essentially normal examination from L4-5 cephalad. 3. Limited image quality secondary to patient's large size. Electronically signed by: Júnior Gutierrez MD 03/08/2018 2:50 PM CDT
[2018-03-08] MEDS ORDERED: PREGABALIN 100 MG CAP PO ONE (15:00)
[2018-03-08] MEDS: HYDROcodone 5MG/APAP 325MG 1 EA TAB PO PRN (15:14)
--- NOTE | 2018-03-08 18:45 | PN ---
DATE: 03/08/18 SUPERVISING PHYSICIAN: Júnior Herrera M.D. SUBJECTIVE: The patient is lying in bed. He continues complaints of back pain across the lower portion of his back. It does not radiate, although both lower legs hurt and he describes it as tingling pain. We are still awaiting approval from his insurance company to go to [facility] in [place]. OBJECTIVE: VITAL SIGNS: He is afebrile, heart rate 82, blood pressure 105/68, respiratory rate 16, O2 sat 94%. RESPIRATORY: Diminished breath sounds at the bases, otherwise clear to auscultation. CARDIAC: Regular rate and rhythm. GASTROINTESTINAL: Abdomen is soft, nondistended, non-tender. Bowel sounds are positive. EXTREMITIES: He moves his bilateral legs laterally in the bed but he will not pick them up. He can wiggle his toes and move his feet to command. Sensation is normal. NEUROLOGIC: He is awake, alert and oriented times three. LABORATORY: There are no labs to report at this time. FILMS: Lumbar spine CT shows: 1) Postoperative changes of L5-S1 with markedly degenerative narrowed irregular L5-S1 disc space without evidence of complete anterior bony fusion with a grade 1 spondylolisthesis. Posterior fixation with pedicle screws in vertical lengths bilaterally is present with what appear to be persistent L5 pars defects. 2) Essentially normal examination from L4-L5 cephalad. 3) Limited image quality secondary to patient's large size. All other labs and films have been reviewed via the EMR. ASSESSMENT: 1. Intractable low back pain with a significant history of chronic low back pain with no apparent recent injury or trauma. 2. Diabetes mellitus, type 2. 3. Hyperlipidemia. 4. History of left sided cerebrovascular accident with mild right sided weakness. 5. Hypertension. PLAN: The patient will continue in Observation. We are awaiting okay from his insurance to be transferred to [facility]. I have explained to the patient that he will need to participate in physical therapy as much as possible for him to be successful at [facility]. Hopefully he can be discharged today or tomorrow to that facility once we hear from his insurance. He has only asked for 1 Flexeril overnight, but due to his complaints of his lower extremity pain, I have given him 1 dose of Lyrica to see if that will help. Otherwise he has not asked for any pain medications. If the insurance does not okay his transfer to rehab, we will need to speak to a neurosurgeon for guidance in his discharge. Otherwise will continue to monitor the patient closely and follow as needed. Dr. Herrera is the collaborating physician available for consultation. #[id number] [facility]
[2018-03-08] MEDS: DOXAZOSIN MESYLATE 2 MG TAB PO SCH (20:56)
[2018-03-08] MEDS: ATORVASTATIN 20 MG TAB PO SCH (20:56)
[2018-03-08] MEDS: glipiZIDE EXTENDED REL (XL) 2.5 MG TAB PO SCH (20:57)
[2018-03-09] MEDS: glipiZIDE 5 MG TAB PO SCH (06:20)
[2018-03-09] MEDS: INSULIN LISPRO 100 UNITS/ML PEN SUBCU SCH ×3 (07:53→17:06)
[2018-03-09] MEDS: FERROUS SULFATE 325 MG TAB PO SCH ×3 (07:54→16:37)
[2018-03-09] MEDS: CARVEDILOL 12.5 MG TAB PO SCH (09:31)
[2018-03-09] MEDS: LORATADINE 10 MG TAB PO SCH (09:31)
[2018-03-09] MEDS: METHOCARBAMOL 750 MG TAB PO SCH ×2 (09:31→14:29)
[2018-03-09] MEDS: ASPIRIN (ENTERIC COATED) 325 MG TAB PO SCH (09:31)
[2018-03-09] MEDS: MELOXICAM 7.5 MG TAB PO SCH (09:32)
[2018-03-09] MEDS: NIFEdipine XL 30 MG TAB PO SCH (09:32)
[2018-03-09] MEDS: hydroCHLOROthiazide 25 MG TAB PO SCH (09:32)
[2018-03-09] MEDS: FAMOTIDINE 20 MG TAB PO SCH (09:32)
[2018-03-09] MEDS: SPIRONOLACTONE 25 MG TAB PO SCH (09:32)
[2018-03-09] MEDS: FUROSEMIDE 40 MG TAB PO SCH (09:32)
[2018-03-09] MEDS: LOSARTAN POTASSIUM 25 MG TAB PO SCH (09:32)
[2018-03-09] MEDS: SODIUM CHLORIDE 0.9% (FLUSH) 10 ML SYG IV SCH (09:33)
[2018-03-09 09:36] VITALS: BP 106/65; TEMP 97; O2SAT 91
[2018-03-09] MEDS ORDERED: POTASSIUM CHLORIDE 20 MEQ TAB PO ONE (14:51)
[2018-03-09] MEDS ORDERED: PREGABALIN 100 MG CAP PO SCH (15:00)
--- NOTE | 2018-03-09 15:04 | MRI ---
EXAM DESCRIPTION: Lumbar Spine w/wo Contrast CLINICAL HISTORY: lower back pain COMPARISON: CT lumbar spine March 08, 2018, March 04, 2018 and November 22, 2011 TECHNIQUE: MRI of the lumbar spine is performed according to our usual protocol with axial and sagittal multi sequence imaging. IV gadolinium contrast was given. FINDINGS: Sagittal T2 images reveal decreased signal intensity consistent with desiccation of the intervertebral discs at levels L3-4 through L5-S1. There is grade 1 anterolisthesis of L5 on S1 which measures 1 cm. This measured 5 mm in October 2011. On CT images from March 08, 2018, this measured 9 mm. Posterior annular bulges are not a prominent finding. No prevertebral mass or aneurysm. Lower cord and conus appear normal. Tip of the conus is behind L1. Sagittal T1 images reveal benign marrow signal characteristics. Metal artifacts are seen related to pedicle screws and interconnecting rods at L5 and S1 level. Normal T1 signal intensity and appearance of the lower cord and conus. Sagittal STIR images show abnormal increased signal intensity around the degenerated L5-S1 disc. No paraspinous fluid collection or cystic lesion. Axial T1 and T2-weighted images were obtained to evaluate the disc levels. L1-2: Minimal posterior annular prominence without posterior herniation. No spinal stenosis or neural foraminal narrowing. Moderate facet hypertrophic changes are seen without significant subarticular recess narrowing. The amount of fluid in the facet joints is mildly increased. L2-3: Mild posterior discal prominence without focal herniation. No spinal stenosis or significant neural foraminal narrowing. Facets appear mildly hypertrophic with mild subarticular recess narrowing. L3-4: Minimal posterior annular bulge without spinal stenosis or significant neural foraminal narrowing. Moderate facet hypertrophic changes are seen with mild subarticular recess compromise. L4-5: No posterior annular bulge or herniation. No spinal stenosis or significant neural foraminal narrowing. Posterior elements are obscured by metal artifacts. Facets are prominent without subarticular recess narrowing of significance. L5-S1: Anterolisthesis causes uncovering of the posterior aspect of the disc. No additional significant bulge or focal herniation. No spinal stenosis or subarticular recess compromise. Sagittal images show moderately severe bilateral neural foraminal narrowing. Metal artifacts from pedicle screws obscure the posterior elements. Moderate facet hypertrophy is seen. Findings suggest bilateral L5 spondylolysis. Upper sacrum appears intact. No retroperitoneal mass or aneurysm. After IV gadolinium contrast, normal enhancement of the lumbar venous plexus is seen. No pathologic osseous enhancement. No enhancement is seen around a recurrent disc herniation. IMPRESSION: Grade 1 anterolisthesis of L5 on S1 with L5-S1 heladio and screw fixation. Moderately severe bilateral L5-S1 neural foraminal narrowing. Electronically signed by: Franco Solis MD 03/09/2018 3:02 PM CDT
--- NOTE | 2018-03-11 19:48 | DS ---
SUPERVISING PHYSICIAN: Júnior Herrera M.D. DISCHARGE DIAGNOSIS: 1. Intractable low back pain with a significant history of chronic low back pain with no apparent recent injury or trauma. 2. Diabetes mellitus, type 2. 3. Hyperlipidemia. 4. History of left sided cerebrovascular accident with mild right sided weakness. 5. Hypertension. 6. Urinary retention with no history of retention. It may be due to intractable low back pain HISTORY OF PRESENT ILLNESS: This is a 58-year-old male patient who presented to the Emergency Room on 02/918 with low back spasms. At that point he was given some pain medications and a Flexeril. The Flexeril seemed to work well and he was sent home with a prescription for Flexeril that he did not fill. He is on Tylenol #3 at home. He is retired and has a significant history of low back pain with several surgical procedures done to his lower back. He then presented again on 03/06/18 because he was unable to get his Flexeril filled. He was having a very difficult time sitting up. He had to lie almost flat. He could move both feet but it was felt that he would benefit for admitting the patient to the hospital for observation to get his back pain under control and to get a rehabilitation hospital referral. HOSPITAL COURSE: He was placed in Observation, given pain medications as well as some Flexeril. The following day, [facility] facility in [place] came to evaluate him. They said that they would take him in transfer once his insurance was approved. Physical Therapy was consulted. The patient had a very difficult time getting up from his bed. He could move both feet as well as both legs, but he was unable to do more than roll side to side in his bed over the next 24 to 48 hours. His initial WBCs were elevated at at 12,600 but they normalized to 9300. His electrolytes were basically within normal limits with the exception of his potassium was slightly low on the date of discharge at 3.4 and he was given supplementation. He does have diabetes and his blood sugars for the most part ran in the 200s and he was on sliding scale insulin coverage. The patient is morbidly obese at 142.88 kg. He rarely took pain medications but he did say that the Flexeril helped him more than anything. When he was on day 3, we still had not heard any acceptance from his insurance. I spoke with Dr. Nix, neurologist in [place], for his recommendations on the patient's care since he was having a difficult time getting up out of his bed. He suggested that we do a lumbar spine MRI to rule out any acute processes that could be causing the patient's difficulty in getting up. He had had a CT at his first E. R. visit and a lumbar CT was also done on the with very little change from his previous lumbar CT, so a lumbar spine MRI was obtained at the recommendation of the neurologist. The lumbar spine results showed grade 1 anterolisthesis of L5 on S1 with L5 to S1 heladio and screw fixation, and moderately severe bilateral L5 to S1 neural foraminal narrowing. There was no suggestion on the MRI to suggest the patient' s difficulty to move. Again, he could move both lower extremities side to side. He could wiggle his toes. The patient's only complaint was that he was unable to sit up due to his lower back pain and his legs were "tingly." He was also started on Lyrica at 100 mg t.i.d. and that helped his lower leg pain, but he continued to have the lower back pain that did not radiate, and shortly after his MRI was completed [facility] called and said that his insurance had approved his stay. I called Dr. Liz, the medical translator, to give her a report on the patient and she accepted the patient in transfer. DISCHARGE PLAN: The patient will be discharged to [facility] facility in [place]. Dr. Liz, Director, has accepted him in transfer. I have sent a disc of his radiology reports. I have also sent a list of his medications that include Flexeril as well as Lyrica. The patient was transferred via ambulance to the facility in [place]. He is to have a close followup after discharge from [facility] with his primary care physician, Dr. Huerta. DISCHARGE MEDICATIONS: 1. Spironolactone. 2. Nifedipine. 3. Meloxicam. 4. Hydrochlorothiazide. 5. Furosemide. 6. Doxazosin.. 7. Carvedilol. 8. Loratadine. 9. Lantus insulin. 10. Ferrous sulfate. 11. Hydralazine. 12. Humalog insulin. 13. Glipizide. 14. Catapres patch. 15. Losartan. 16. Aspirin. 17. Pepcid. 18. Atorvastatin. 19. Multivitamin. 20. Flexeril. 21. Acetaminophen with codeine. 22. Flexeril. 23. Lyrica. #[id number] [facility]
[2018-03-14] MEDS ORDERED: cloNIDine PATCH 0.2 MG/24HR 0.2 MG PATCH TD SCH (09:00)
[2018-03-14] MEDS ORDERED: cloNIDine PATCH 0.1MG/24HR 0.1 MG PATCH TD SCH (09:00)
== END 2018-03-09 16:55 ==
LOC: ER 17:24 → MS 22:01
PROVIDERS: ADMIT Nurse Practitioner Family; ATTEND Nurse Practitioner Acute Care
DX: G89.29 Other chronic pain (principal); M51.16 Intervertebral disc disorders with radiculopathy, lumbar region; M43.16 Spondylolisthesis, lumbar region; R20.2 Paresthesia of skin; E11.65 Type 2 diabetes mellitus with hyperglycemia; E78.5 Hyperlipidemia, unspecified; I69.351 Hemiplegia and hemiparesis following cerebral infarction affecting right dominant side; I10 Essential (primary) hypertension; R33.9 Retention of urine, unspecified; E87.6 Hypokalemia; J45.909 Unspecified asthma, uncomplicated; K21.9 Gastro-esophageal reflux disease without esophagitis; E66.01 Morbid (severe) obesity due to excess calories; Z68.41 Body mass index [BMI] 40.0-44.9, adult; Z98.1 Arthrodesis status; Z79.4 Long term (current) use of insulin; Z79.1 Long term (current) use of non-steroidal anti-inflammatories (NSAID); Z79.899 Other long term (current) drug therapy; Z88.0 Allergy status to penicillin; Z88.1 Allergy status to other antibiotic agents; Z88.3 Allergy status to other anti-infective agents; Z86.14 Personal history of Methicillin resistant Staphylococcus aureus infection
CPT/HCPCS: 96372 ×3; 96375 ×2; 96376; J1885 ×3; J2270; J2360; J1815; 80048; 80053; 82948 ×12; 36415 ×2; 81001; 85025 ×2; 83735; 36416 ×8; 87070; 72131; 94760 ×5; 97530 ×2; 99285; 72158; G0378; 96374

== ENCOUNTER 2018-03-31 18:46 | Observation (INO) | payer BC ==
--- NOTE | 2018-03-31 21:47 | ED.PDOC ---
History of Present Illness - General Chief Complaint: Lower Extremity Injury Stated Complaint: muscle spasms in feet and legs Time Seen by Provider: 03/31/18 18:54 Source: patient Exam Limitations: no limitations - History of Present Illness Initial Comments: The patient is a 58-year-old male presenting to the emergency room secondary to the inability to perform his activities of daily living. He was apparently released from a rehabilitation facility yesterday. He has had several falls since coming back home. He does essentially live alone and has lived alone but he has an aunt that comes by the helps to take care of them. She is unable to do much for him and she herself has multiple sclerosis. The patient has had a difficult time getting back and forth to the bathroom and to the door. He has been unable to fix his meals or get to his medications appropriately. He is not having any worsening of his weakness. He is simply unable to do these things for himself at this time. He is not actually having any new symptoms. His aunt is currently looking into a long-term care facility for the patient. He is not having any new weakness. He is not having any new pain. He does however have a indwelling Franz catheter that he will need latter training for. he has already had a fairly extensive workup with neurology for his back issues. He has also undergone a little less than a month already of physical therapy. Timing/Duration: unsure Severity: moderate Improving Factors: nothing Worsening Factors: nothing Associated Symptoms: weakness Allergies/Adverse Reactions: Allergies Cephalexin Allergy (Verified 03/31/18 19:29) Unknown Lincomycin Allergy (Verified 03/31/18 19:29) Unknown Oxytetracycline [From Terramycin Ointment] Allergy (Verified 03/31/18 19:29) Unknown Polymyxin B [From Terramycin Ointment] Allergy (Verified 03/31/18 19:29) Unknown Penicillins Adverse Reaction (Severe, Verified 03/31/18 19:29) Hives Home Medications: Ambulatory Orders Carvedilol 25 mg PO BID 03/04/18 Doxazosin Mesylate 2 mg PO BEDTIME 03/04/18 Furosemide 40 mg PO DAILY 03/04/18 Hydrochlorothiazide 25 mg PO DAILY 03/04/18 Meloxicam 7.5 mg PO BID 03/04/18 Nifedipine [Nifedical Xl] 60 mg PO BID 03/04/18 Spironolactone 25 mg PO DAILY 03/04/18 Acetaminophen W/ Codeine [Tylenol W/ CODEINE #3] 1 ea PO Q6HRS PRN 03/06/18 Aspirin [Enteric Coated Aspirin] 325 mg PO DAILY 03/06/18 Atorvastatin Calcium [Lipitor] 40 mg PO BEDTIME 03/06/18 Cyclobenzaprine HCl [Flexeril] 10 mg PO TID PRN 03/06/18 Famotidine 20 mg PO BID 03/06/18 Ferrous Sulfate 325 mg PO TID 03/06/18 Glipizide 5 mg PO DAILY@0700 03/06/18 Glipizide [Glipizide Xl] 2.5 mg PO BEDTIME 03/06/18 Hydralazine HCl 100 mg PO TID 03/06/18 Insulin Glargine [Lantus Solostar] 20 unit SC DAILY@0700 03/06/18 Insulin Glargine [Lantus Solostar] 22 unit SC BEDTIME 03/06/18 Insulin Lispro (Human) [Humalog] See Protocol SC ACHS 03/06/18 Loratadine 10 mg PO DAILY 03/06/18 Losartan Potassium 50 mg PO BID 03/06/18 Multiple Vitamin [Multi Vitamin] 1 tablet PO DAILY 03/06/18 cloNIDine PATCH 0.2 MG/24HR [[id number]-WBA-7 Patch] 0.3 mg TOP WKLY 03/06/18 Cyclobenzaprine HCl [Flexeril] 10 mg PO TID PRN tab 03/09/18 HYDROcodone 5MG/APAP 325MG [[place] 5/325] 1 ea PO Q4H PRN tab 03/09/18 Pregabalin [Lyrica] 100 mg PO TID cap 03/09/18 Review of Systems - Review of Systems Constitutional: States: malaise, weakness EENTM: States: no symptoms reported Respiratory: States: no symptoms reported Cardiology: States: no symptoms reported Gastrointestinal/Abdominal: States: no symptoms reported Genitourinary: States: no symptoms reported Musculoskeletal: States: back pain Skin: States: no symptoms reported Neurological: States: paresthesia - chronic, weakness Endocrine: States: no symptoms reported All other Systems: No Change from Baseline Past Medical History (General) - Patient Medical History Hx Seizures: No Hx Stroke: Yes - 06/2016 Hx Dementia: No Hx Asthma: No Hx of COPD: No Hx Cardiac Disorders: Yes - stroke Jun 2016 Hx Congestive Heart Failure: No Hx Pacemaker: No Hx Hypertension: Yes Hx Thyroid Disease: No Hx Diabetes: Yes Hx Gastroesophageal Reflux: Yes - NIDDM Hx Renal Disease: No Hx Cancer: No Hx of HIV: No Hx Hepatitis C: No Hx MRSA: Yes MRSA Source:: skin - Vaccination History Hx Tetanus, Diphtheria Vaccination: No Hx Influenza Vaccination: Yes Hx Pneumococcal Vaccination: Yes - Social History Hx Tobacco Use: No Hx Chewing Tobacco Use: No Hx Alcohol Use: No Hx Substance Use: No Hx Substance Use Treatment: No Hx Depression: No Hx Physical Abuse: No Hx Emotional Abuse: No Hx Suspected Abuse: No - Female History Patient : No - Triage Comment ED Triage Comment: Pt reports he is having muscle spasms in his lower extremeties and soles of feet. PT just home yesterday from rehab and when he got home his legs got weak and went down onto floor. He has been in WC since yesterday and unable to stand or walk since. Family Medical History - Family History Father Living Status: Hx Family Asthma: No Hx Family Congestive Heart Failure: No Hx Family Hypertension: Yes Hx Family Stroke: No Hx Cardiac Disease: No Hx Family Diabetes: No Hx Family Cancer: Yes - ESOPHAGUS Hx Family;Other: MOTHER ALSO HAD STROKE. Mother Living Status: Hx Family Asthma: No Hx Family Congestive Heart Failure: No Hx Family Hypertension: Yes Hx Family Stroke: Yes Hx Cardiac Disease: No Hx Family Diabetes: Yes Hx Family Cancer: No Physical Exam - Physical Exam General Appearance: Alert, Comfortable, No apparent distress Eye Exam: bilateral normal Ears, Nose, Throat: hearing grossly normal, normal ENT inspection, normal pharynx Neck: non-tender, full range of motion, supple Respiratory: lungs clear, normal breath sounds, no respiratory distress, no accessory muscle use Cardiovascular/Chest: normal peripheral pulses, no edema, other - regular rate Peripheral Pulses: radial,right: 2+, radial,left: 2+ Gastrointestinal/Abdominal: non tender - morbidly obese, soft Rectal Exam: deferred Back Exam: no vertebral tenderness Extremity: normal range of motion, non-tender, no calf tenderness, normal capillary refill, pedal edema - =1 bilaterally which is chronic Neurologic: junior account manager II-XII nml as tested, alert, normal mood/affect, oriented x 3 Skin Exam: normal color Comments: Vital Signs - 24 hr 03/31/18 19:11 Temperature 99.3 F Pulse Rate [ 113 H left] Respiratory 22 Rate Blood Pressure 162/90 [left] O2 Sat by Pulse 94 L Oximetry Progress - Progress Progress: 03/31/18 21:48 the patient is a 58-year-old male presenting to the emergency room secondary to inability to perform his activities of daily living. This is not a new issue. His aunt is trying to find placement for long-term care facility. She is unable to assist him around his apartment secondary to his very large size and her medications due to multiple sclerosis. The patient will be admitted short term to provide care until longer-term placement can be found. This patient obviously will need much longer term rehabilitation. Continue care for his multitude of chronic medical problems as well as with his home medications. Departure - Departure Clinical Impression: Inability to perform activities of daily living Chronic low back pain Qualifiers: Back pain laterality: bilateral Sciatica presence: with sciatica Sciatica laterality: bilateral sciatica Qualified Code(s): M54.42 - Lumbago with sciatica , left side; M54.41 - Lumbago with sciatica, right side; M54.41 - Lumbago with sciatica, right side; G89.29 - Other chronic pain; G89.29 - Other chronic pain Disposition: Admit Patient Referrals: Fadi Huerta MD [Primary Care Provider] - 1-2 Weeks Home Medications: Ambulatory Orders Carvedilol 25 mg PO BID 03/04/18 Doxazosin Mesylate 2 mg PO BEDTIME 03/04/18 Furosemide 40 mg PO DAILY 03/04/18 Hydrochlorothiazide 25 mg PO DAILY 03/04/18 Meloxicam 7.5 mg PO BID 03/04/18 Nifedipine [Nifedical Xl] 60 mg PO BID 03/04/18 Spironolactone 25 mg PO DAILY 03/04/18 Acetaminophen W/ Codeine [Tylenol W/ CODEINE #3] 1 ea PO Q6HRS PRN 03/06/18 Aspirin [Enteric Coated Aspirin] 325 mg PO DAILY 03/06/18 Atorvastatin Calcium [Lipitor] 40 mg PO BEDTIME 03/06/18 Cyclobenzaprine HCl [Flexeril] 10 mg PO TID PRN 03/06/18 Famotidine 20 mg PO BID 03/06/18 Ferrous Sulfate 325 mg PO TID 03/06/18 Glipizide 5 mg PO DAILY@0700 03/06/18 Glipizide [Glipizide Xl] 2.5 mg PO BEDTIME 03/06/18 Hydralazine HCl 100 mg PO TID 03/06/18 Insulin Glargine [Lantus Solostar] 20 unit SC DAILY@0700 03/06/18 Insulin Glargine [Lantus Solostar] 22 unit SC BEDTIME 03/06/18 Insulin Lispro (Human) [Humalog] See Protocol SC ACHS 03/06/18 Loratadine 10 mg PO DAILY 03/06/18 Losartan Potassium 50 mg PO BID 03/06/18 Multiple Vitamin [Multi Vitamin] 1 tablet PO DAILY 03/06/18 cloNIDine PATCH 0.2 MG/24HR [Nkpmqbip-UVI-2 Patch] 0.3 mg TOP WKLY 03/06/18 Cyclobenzaprine HCl [Flexeril] 10 mg PO TID PRN tab 03/09/18 HYDROcodone 5MG/APAP 325MG [[place] 5/325] 1 ea PO Q4H PRN tab 03/09/18 Pregabalin [Lyrica] 100 mg PO TID cap 03/09/18 Decision To Admit - Decistion To Admit Decision to Admit Reason: Medical Nature Decision to Admit Date: 03/31/18 Decision to Admit Time: 21:51
--- NOTE | 2018-03-31 22:27 | HP ---
SUPERVISING PHYSICIAN: Denis Elizalde MD CHIEF COMPLAINT: Weakness, especially to lower extremities. HISTORY OF PRESENT ILLNESS: This is a 58-year-old male patient who was actually in the hospital approximately one month ago. At that time, he came with decreased mobility in his lower extremities and was having a very difficult time moving around. He was put in the hospital for observation. CT of his lumbar spine and an MRI of his lumbar spine revealed no acute abnormalities. He was accepted in transfer to [facility]. He was discharged from this facility on 03/09/18 and he has been participating in rehabilitation efforts at that facility. About two weeks ago he was walking up to 60 feet with a walker. He was still very weak but he was completing his physical therapy but in the last three days, although nothing had changed in his regimen, he became increasingly weaker. He had pain that was in his left hip area and extended to his left foot. He also had some pain that went to his right foot. He could not distinguish if it was neuropathic pain or was muscle spasm and he was discharged from the facility on . He lives alone usually but his aunt (who has MS) has been assisting with his care. She was unable to assist him with any of his activities. He was so weak that he could not support himself and he was brought to the Emergency Room due to the instability to perform his activities of daily living. During this time , his aunt was thinking admission to [facility] but they usually do not evaluate patients on the weekend and she could no longer take care him so he was brought to the Emergency Room and I was called for hospital admission pending admission to the rehab [facility] in [facility]. PAST MEDICAL HISTORY: 1. Asthma. 2. Degenerative lumbar disease. 3. Hypertension. 4. Diabetes mellitus, type 2. 5. Hyperlipidemia. 6. Morbid obesity. 7. History of cerebrovascular accident with mild residual right-sided weakness. 8. History of recent hospitalization for weakness to lower extremities with subsequent admission to rehabilitation center. PAST SURGICAL HISTORY: 1. Back surgery. OUTPATIENT MEDICATIONS: Per the EMR and awaiting verification. ALLERGIES: KEFLEX, VANCOMYCIN, PENICILLIN, TERRAMYCIN. SOCIAL HISTORY: He is a retired supervisory lifeguard. He lives alone. He denies any tobacco, ETOH or illicit drug use. REVIEW OF SYSTEMS: GENERAL: Denies fever, fatigue or weight changes. HEENT: Denies sinus symptoms, ear pain, vision changes or sore throat. RESPIRATORY: Denies wheezing, coughing or shortness of breath. CARDIAC: Denies chest pain, palpitations or tachycardia. GASTROINTESTINAL: Denies nausea, vomiting, diarrhea, constipation. GENITOURINARY: Denies hematuria, dysuria or polyuria. MUSCULOSKELETAL: As per history of present illness. SKIN: Denies lesions or rashes. NEUROLOGIC: Positive for peripheral neuropathy mostly due to diabetes and his low back surgery and some left hip sciatica pain. PHYSICAL EXAMINATION: VITAL SIGNS: Temperature 97.6. Pulse 86. Blood pressure 112/74. Respiratory rate 20. O2 saturation 94% on room air. GENERAL: This is an obese male patient who is lying in his hospital bed. He is in no acute distress. HEENT: Normocephalic, atraumatic. Pupils are equal and reactive. Oropharynx is clear. NECK: Supple without mass. RESPIRATORY: Essentially clear to auscultation bilaterally, somewhat diminished at the bases. CHEST: There is equal rise and fall of the chest with inspiration and expiration. CARDIOVASCULAR: Regular rate and rhythm. GASTROINTESTINAL: Abdomen is soft, nondistended, nontender. Bowel sounds are positive. EXTREMITIES: No cyanosis, clubbing or edema. Bilateral pedal pulses are palpable. He does move his bilateral extremities to command. He is just very weak but he will wiggle his toes to command and lift his legs to command. His right events associate is slightly less than his left events associate. NEUROLOGIC: Awake, alert and oriented times three. LABORATORY/FILMS: There are no labs or films to report. IMPRESSION: 1. Progressive weakness in spite of rehabilitation but causes deficit in activities of daily living. 2. Progressive low back pain with a significant history of chronic low back pain. There has been no recent injury or trauma. 3. Diabetes mellitus, type 2. 4. Hyperlipidemia. 5. History of left-sided cerebrovascular accident with some mild right-sided weakness. 6. Hypertension. PLAN: We will place the patient in observation. We will continue his home medications. I have started Lovenox for DVT prophylaxis as well as PPI for ulcer prophylaxis. We will get in touch with [facility] and send them the information they will need for his subsequent admission to that facility. While he is in the hospital we will monitor him closely and follow as needed. Dr. Elizalde is the collaborating physician and available for consultation. #[id number] [facility]
[2018-03-31] MEDS ORDERED: ACETAMINOPHEN 325 MG TAB PO PRN (23:00)
[2018-03-31] MEDS ORDERED: GLUCAGON INJ 1 MG VIAL SUBCU PRN (23:09)
[2018-03-31] MEDS ORDERED: DEXTROSE 50% 25 GM/50 ML SYG IV PRN (23:09)
[2018-03-31] MEDS ORDERED: CYCLOBENZAPRINE HCL 10 MG TAB PO PRN (23:18)
[2018-03-31] MEDS ORDERED: HYDROcodone 5MG/APAP 325MG 1 EA TAB PO PRN (23:18)
[2018-03-31] MEDS ORDERED: PREGABALIN 100 MG CAP PO ONE (23:20)
[2018-04-01] MEDS ORDERED: OMEPRAZOLE CAP 20 MG CAP PO SCH (06:30)
[2018-04-01] MEDS ORDERED: SODIUM CHLORIDE 0.9% (FLUSH) 10 ML SYG IV PRN (07:33)
[2018-04-01] MEDS: INSULIN LISPRO 100 UNITS/ML PEN SUBCU SCH ×2 (07:51→12:31)
[2018-04-01] MEDS ORDERED: IV SET AND CAP CHANGE INJ INJ SCH (08:00)
[2018-04-01] MEDS ORDERED: POTASSIUM CHLORIDE 20 MEQ TAB PO SCH (09:00)
[2018-04-01] MEDS ORDERED: glipiZIDE 5 MG TAB PO SCH (09:00)
[2018-04-01] MEDS ORDERED: INSULIN DETEMIR 100 UNITS/ML PEN SUBCU SCH ×2 (09:00→21:00)
[2018-04-01] MEDS ORDERED: LOSARTAN POTASSIUM 25 MG TAB PO SCH (09:00)
[2018-04-01] MEDS ORDERED: MELOXICAM 7.5 MG TAB PO SCH (09:00)
[2018-04-01] MEDS ORDERED: SODIUM CHLORIDE 0.9% (FLUSH) 10 ML SYG IV SCH (09:00)
[2018-04-01] MEDS ORDERED: SPIRONOLACTONE 25 MG TAB PO SCH (09:00)
[2018-04-01] MEDS ORDERED: FUROSEMIDE 40 MG TAB PO SCH (09:00)
[2018-04-01] MEDS ORDERED: TAMSULOSIN 0.4 MG CAP PO SCH (09:00)
[2018-04-01] MEDS ORDERED: ASPIRIN (ENTERIC COATED) 325 MG TAB PO SCH (09:00)
[2018-04-01] MEDS ORDERED: FAMOTIDINE 20 MG TAB PO SCH (09:00)
[2018-04-01] MEDS ORDERED: LORATADINE 10 MG TAB PO SCH (09:00)
[2018-04-01] MEDS ORDERED: CARVEDILOL 12.5 MG TAB PO SCH (09:00)
[2018-04-01] MEDS ORDERED: glipiZIDE EXTENDED REL (XL) 5 MG TAB PO SCH (09:00)
[2018-04-01] MEDS ORDERED: NIFEdipine XL 30 MG TAB PO SCH (09:00)
[2018-04-01] MEDS ORDERED: glipiZIDE EXTENDED REL (XL) 5 MG TAB ONE (09:17)
[2018-04-01] MEDS: NYSTATIN POWDER 15GM BTTL TOP SCH ×2 (09:18→13:28)
[2018-04-01] MEDS: PREGABALIN 100 MG CAP PO SCH ×2 (09:19→15:26)
[2018-04-01 15:18] VITALS: BP 131/76; TEMP 97.2; O2SAT 96
[2018-04-01] MEDS ORDERED: DOXAZOSIN MESYLATE 2 MG TAB PO SCH (21:00)
[2018-04-01] MEDS ORDERED: ATORVASTATIN 20 MG TAB PO SCH (21:00)
--- NOTE | 2018-04-02 14:43 | DS ---
SUPERVISING PHYSICIAN: Vida Elizalde MD DISCHARGE DIAGNOSIS: 1. Progressive weakness in spite of rehabilitation that causes deficit in activities of daily living. 2. Progressive low back pain with a significant history of chronic low back pain. There has been no recent injury or trauma. 3. Diabetes mellitus, type 2. 4. Hyperlipidemia. 5. History of left-sided cerebrovascular accident with some mild right-sided weakness. 6. Hypertension. HISTORY OF PRESENT ILLNESS: This is a 58-year-old male patient who was actually in the hospital approximately one month ago. At that time, he came with decreased mobility in his lower extremities and was having a very difficult time moving around. He was put in the hospital for observation. CT of his lumbar spine and an MRI of his lumbar spine revealed no acute abnormalities. He was accepted in transfer to [facility]. He was discharged from this facility on 03/09/18 and he has been participating in rehabilitation efforts at that facility. About two weeks ago he was walking up to 60 feet with a walker. He was still very weak but he was completing his physical therapy but in the last three days, although nothing had changed in his regimen, he became increasingly weaker. He had pain that was in his left hip area and extended to his left foot. He also had some pain that went to his right foot. He could not distinguish if it was neuropathic pain or was muscle spasm and he was discharged from the facility on . He lives alone usually but his aunt (who has MS) has been assisting with his care. She was unable to assist him with any of his activities. He was so weak that he could not support himself and he was brought to the Emergency Room due to the instability to perform his activities of daily living. During this time , his aunt was thinking admission to [facility] but they usually do not evaluate patients on the weekend and she could no longer take care him so he was brought to the Emergency Room and I was called for hospital admission pending admission to the [facility]hab [facility] in [place]. HOSPITAL COURSE: The patient was placed in observation in the hospital. His home medications were restarted. A.c. and h.s. blood sugars were ordered with sliding scale regular insulin. He was placed on a proton pump inhibitor for ulcer prophylaxis and Lovenox for DVT prophylaxis. The [facility] came to evaluate the patient today. He was accepted in transfer and he will be discharged to that facility today. DISCHARGE PLAN: The patient will be discharged to [facility] in stable condition. He is to start a diabetic diet. His activity will be to increase as tolerated and as per physical therapy. He will have a followup with his primary care physician, Dr. Fadi Huerta, in one to weeks. He is to resume his previous home medications. He is to call Dr. Huerta's office or return to the hospital for any further problems or complications. DISCHARGE MEDICATIONS: 1. Spironolactone. 2. Nifedipine. 3. Meloxicam. 4. Furosemide. 5. Doxazosin. 6. Carvedilol. 7. Loratadine. 8. Lantus insulin. 9. Ferrous sulfate. 10. Hydralazine. 11. Humalog insulin. 12. Clonidine patch. 13. Losartan. 14. Aspirin. 15. Famotidine. 16. Atorvastatin. 17. Multivitamins. 18. Cyclobenzaprine. 19. Lyrica. 20. Nystatin powder. 21. Tamsulosin. 22. Potassium chloride. 23. Cyanocobalamin. 24. Glipizide extended release. #[id number] [facility]
== END 2018-04-01 15:45 ==
LOC: ER 18:46 → MS 22:26
PROVIDERS: ADMIT Nurse Practitioner Acute Care; ATTEND Nurse Practitioner Acute Care
DX: M62.81 Muscle weakness (generalized) (principal); I69.354 Hemiplegia and hemiparesis following cerebral infarction affecting left non-dominant side; M51.16 Intervertebral disc disorders with radiculopathy, lumbar region; G89.29 Other chronic pain; E11.42 Type 2 diabetes mellitus with diabetic polyneuropathy; E78.5 Hyperlipidemia, unspecified; E66.01 Morbid (severe) obesity due to excess calories; Z68.41 Body mass index [BMI] 40.0-44.9, adult; Z79.1 Long term (current) use of non-steroidal anti-inflammatories (NSAID); Z79.4 Long term (current) use of insulin; Z79.82 Long term (current) use of aspirin; Z79.899 Other long term (current) drug therapy; Z88.0 Allergy status to penicillin; Z88.1 Allergy status to other antibiotic agents; Z88.3 Allergy status to other anti-infective agents
CPT/HCPCS: 96372; J1815 ×2; 82948 ×2; 36416 ×2; 94760 ×2; 99285; G0378

== ENCOUNTER → 2019-03-11 | Outpatient (CLI) | payer BC | LOC: GMA MATASK 14:00 | PROVIDERS: ATTEND Family Medicine | DX: E11.622 Type 2 diabetes mellitus with other skin ulcer (principal); I10 Essential (primary) hypertension ==

== ENCOUNTER 2019-06-17 13:28 | Inpatient (IN) | payer BC ==
[2019-06-17] MEDS ORDERED: IPRATROPIUM/ALBUTEROL 3 ML VIAL NEB ONE (13:42)
[2019-06-17] MEDS ORDERED: IBUPROFEN 200 MG TAB PO ONE (13:43)
[2019-06-17] MEDS ORDERED: FLUCONAZOLE 100 MG TAB PO ONE (13:44)
--- NOTE | 2019-06-17 14:28 | RAD ---
EXAM DESCRIPTION: Chest,1 View CLINICAL HISTORY: 59 years Male, cough, fever COMPARISON: None. TECHNIQUE: AP portable chest. FINDINGS: Fair expansion of the lungs is evident without consolidation, layering effusion, or large mass. Heart size and vascularity appear normal for AP technique and degree of inspiration. No gross bony, hilar, or mediastinal abnormalities are noted. IMPRESSION: Normal chest, one view Electronically signed by: Júnior Gutierrez MD 06/17/2019 2:27 PM HEAD OF LOSS PREVENTION
[2019-06-17] MEDS ORDERED: POTASSIUM CHLORIDE ELIXIR 20 MEQ/15 ML UD PO ONE (14:30)
[2019-06-17] MEDS ORDERED: VANCOMYCIN HCL INJ 1,000 MG, VANCOMYCIN HCL INJ 500 MG in SODIUM CHLORIDE 0.9% 250ML 25... IVPB ONE (14:30)
[2019-06-17] MEDS ORDERED: predniSONE 20 MG TAB PO ONE (14:33)
[2019-06-17] MEDS ORDERED: VANCOMYCIN HCL INJ 1,000 MG VIAL IVPB ONE (14:37)
[2019-06-17] MEDS ORDERED: VANCOMYCIN HCL INJ 500 MG VIAL ONE (14:37)
[2019-06-17] MEDS ORDERED: SODIUM CHLORIDE 0.9% 250ML 250 ML ONE (14:38)
--- NOTE | 2019-06-17 15:46 | ED.PDOC ---
History of Present Illness - General Chief Complaint: Fever Stated Complaint: fever, left leg wound drainage Time Seen by Provider: 06/17/19 13:36 Source: patient Exam Limitations: no limitations - History of Present Illness Initial Comments: the patient is a 59-year-old male presenting to the emergency room secondary to fever and a productive cough starting this morning. He has had a mild sore throat and burning nose. Longer term the patient has had a large left lower extremity red rash/excoriation. He also has intertrigo in his body folds in the anterior aspect of his abdomen. He has chronic dependent edema. The patient is quite anxious. He does desaturate down to around 86% on room air. He is obviously having an asthma exacerbation currently. He does have increased work of breathing and wheezing. Timing/Duration: other - 12 hours Severity: moderate Improving Factors: nothing Worsening Factors: nothing Associated Symptoms: cough, diaphoresis, fever/chills, loss of appetite, malaise, shortness of breath, weakness Allergies/Adverse Reactions: Allergies Cephalexin Allergy (Verified 03/31/18 19:29) Unknown Lincomycin Allergy (Verified 03/31/18 19:29) Unknown Oxytetracycline [From Terramycin Ointment] Allergy (Verified 03/31/18 19:29) Unknown Polymyxin B [From Terramycin Ointment] Allergy (Verified 03/31/18 19:29) Unknown Penicillins Adverse Reaction (Severe, Verified 03/31/18 19:29) Hives Home Medications: Ambulatory Orders Carvedilol 25 mg PO BID 03/04/18 Doxazosin Mesylate 2 mg PO BEDTIME 03/04/18 Furosemide 40 mg PO DAILY 03/04/18 Meloxicam 7.5 mg PO BID 03/04/18 Nifedipine [Nifedical Xl] 60 mg PO BID 03/04/18 Spironolactone 25 mg PO DAILY 03/04/18 Aspirin [Aspirin EC] 325 mg PO DAILY 03/06/18 Atorvastatin Calcium [Lipitor] 40 mg PO BEDTIME 03/06/18 Famotidine 20 mg PO BID 03/06/18 Ferrous Sulfate 325 mg PO TID 03/06/18 Hydralazine HCl [Hydralazine Hydrochloride] 50 mg PO TID 03/06/18 Insulin Glargine [Lantus Solostar] 20 unit SC DAILY@0700 03/06/18 Insulin Glargine [Lantus Solostar] 22 unit SC BEDTIME 03/06/18 Insulin Lispro [Humalog] See Protocol SC ACHS 03/06/18 Loratadine 10 mg PO DAILY 03/06/18 Losartan Potassium 50 mg PO BID 03/06/18 Multiple Vitamin [Multi Vitamin] 1 tablet PO DAILY 03/06/18 cloNIDine PATCH 0.2 MG/24HR [Gpecsnfj-WTW-8 Patch] 0.3 mg TOP WKLY 03/06/18 Cyclobenzaprine HCl [Flexeril] 10 mg PO TID PRN tab 03/09/18 HYDROcodone 5MG/APAP 325MG [Shoshone 5/325] 1 ea PO Q4H PRN tab 03/09/18 Pregabalin [Lyrica] 100 mg PO TID cap 03/09/18 Cyanocobalamin [Vitamin B-12] 1,500 mcg PO DAILY 04/01/18 Nystatin Powder 15 gm TOP QID 04/01/18 Potassium Chloride [Potassium Chloride ER] 20 meq PO DAILY 04/01/18 Tamsulosin HCl [Flomax] 0.4 mg PO DAILY 04/01/18 glipiZIDE EXTENDED REL (XL) [Glucotrol XL] 5 mg PO BIDAC 04/01/18 Review of Systems - Review of Systems Constitutional: States: fever, malaise, weakness - generalized EENTM: States: nose congestion, throat pain Respiratory: States: cough, short of breath, wheezing Cardiology: States: no symptoms reported Gastrointestinal/Abdominal: States: no symptoms reported Genitourinary: States: no symptoms reported Musculoskeletal: States: no symptoms reported - body aches Skin: States: see HPI Neurological: States: anxiety, headache Endocrine: States: no symptoms reported All other Systems: No Change from Baseline Past Medical History (General) - Patient Medical History Hx Seizures: No Hx Stroke: Yes Hx Dementia: No Hx Asthma: No Hx of COPD: No Hx Cardiac Disorders: Yes - stroke Jun 2016 Hx Congestive Heart Failure: No Hx Pacemaker: No Hx Hypertension: Yes Hx Thyroid Disease: No Hx Diabetes: Yes Hx Gastroesophageal Reflux: Yes - NIDDM Hx Renal Disease: No Hx Cancer: No Hx of HIV: No Hx Hepatitis C: No Hx MRSA: Yes MRSA Source:: skin - Vaccination History Hx Tetanus, Diphtheria Vaccination: No Hx Influenza Vaccination: Yes Hx Pneumococcal Vaccination: Yes - Social History Hx Tobacco Use: No Hx Chewing Tobacco Use: No Hx Alcohol Use: No Hx Substance Use: No Hx Substance Use Treatment: No Hx Depression: No Hx Physical Abuse: No Hx Emotional Abuse: No Hx Suspected Abuse: No - Activities of Daily Living Hospice Agency (if applicable):: None - Female History Patient is a Female of Child Bearing Age (10 -59 yrs old): No Patient : No - Triage Comment ED Triage Comment: pt reports he has had a fever since last night with productive cough since two months ago. Left leg wound draining serous fluid. Family Medical History - Family History Father Living Status: Hx Family Asthma: No Hx Family Congestive Heart Failure: No Hx Family Hypertension: Yes Hx Family Stroke: No Hx Cardiac Disease: No Hx Family Diabetes: No Hx Family Cancer: Yes - ESOPHAGUS Hx Family;Other: MOTHER ALSO HAD STROKE. Mother Living Status: Hx Family Asthma: No Hx Family Congestive Heart Failure: No Hx Family Hypertension: Yes Hx Family Stroke: Yes Hx Cardiac Disease: No Hx Family Diabetes: Yes Hx Family Cancer: No Physical Exam - Physical Exam General Appearance: Alert, Ill Appearing Eye Exam: bilateral normal Ears, Nose, Throat: nasal congestion, pharyngeal erythema Neck: full range of motion, supple Respiratory: accessory muscle use, rhonchi, wheezing Cardiovascular/Chest: normal peripheral pulses, regular rate, rhythm Peripheral Pulses: radial,right: 2+, radial,left: 2+ Gastrointestinal/Abdominal: non tender - obese, soft Rectal Exam: deferred Back Exam: no CVA tenderness, no vertebral tenderness Extremity: normal range of motion, normal capillary refill 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 Excoriated rash to the left lateral calf. Comments: Vital Signs - 24 hr 06/17/19 06/17/19 06/17/19 13:46 14:29 15:00 Temperature 99.2 F 101.4 F H 100.4 F H Pulse Rate [ 100 H 92 H 87 brachial] Respiratory 22 20 20 Rate Blood Pressure 149/76 148/65 115/60 [left hand] O2 Sat by Pulse 97 93 L 96 Oximetry Progress - Progress Progress: 06/17/19 15:47 the patient is a 59-year-old male presenting to emergency room with an acute asthma exacerbation while being triggered by background illness. The patient has received a breathing treatment and dose oral prednisone along with some supplemental oxygen and he is breathing a little better as a result. Source of the infection is not entirely certain. He has tested negative for in fluenza however the source may be another virus and we cannot test for or he may be becoming septic from one of his skin lesions. To this and he will be covered with vancomycin and Levaquin. We did do a topical wound culture on the left lower calf. He did receive 1 dose of Diflucan for the intertrigo. He will need to be kept well hydrated. Admit for continued care. He will need additional louis athing treatments. - Results/Orders Results/Orders: chest x-ray shows no overt infiltrate. There is mild air trapping. Laboratory Tests 06/17/19 06/17/19 06/17/19 13:35 13:35 14:50 WBC 16.8 H RBC 3.96 L Hgb 12.3 L Hct 37.4 L MCV 94.4 H MCH 31.1 H MCHC 33.0 RDW 15.6 H Plt Count 229 MPV 8.6 Absolute Neuts (auto) 14.90 H Absolute Lymphs (auto) 1.00 Absolute Monos (auto) 0.80 Absolute Eos (auto) 0.00 Absolute Basos (auto) 0.10 Neutrophils % 88.9 H Lymphocytes % 5.8 L Monocytes % 4.7 Eosinophils % 0.1 L Basophils % 0.5 Sodium 140 Potassium 3.2 L Chloride 103 Carbon Dioxide 26 Anion Gap 14.2 BUN 21 H Creatinine 1.12 BUN/Creatinine Ratio 18.8 Random Glucose 151 H Serum Osmolality 285.3 Lactic Acid 1.2 Calcium 8.6 Total Bilirubin 1.2 H AST 32 ALT 29 Alkaline Phosphatase 83 Creatine Kinase 217 H* CK-MB (CK-2) 0.9 CK-MB (CK-2) % Not Reportable Troponin I 0.04 B-Natriuretic Peptide 64.7 Serum Total Protein 7.1 Albumin 3.6 Globulin 3.5 Albumin/Globulin Ratio 1.0 L Departure - Departure Clinical Impression: Intertrigo, Insulin dependent diabetes mellitus Asthma exacerbation Qualifiers: Asthma severity: moderate Asthma persistence: persistent Qualified Code(s): J45.41 - Moderate persistent asthma with (acute) exacerbation Cellulitis, leg Qualifiers: Laterality: left Qualified Code(s): L03.116 - Cellulitis of left lower limb Disposition: Admit Patient Condition: Fair Departure Forms: ED Discharge - Pt. Copy, Patient Portal Self Enrollment Referrals: Dennis Harris MD [Primary Care Provider] - 1-2 Weeks Home Medications: Ambulatory Orders Carvedilol 25 mg PO BID 03/04/18 Doxazosin Mesylate 2 mg PO BEDTIME 03/04/18 Furosemide 40 mg PO DAILY 03/04/18 Meloxicam 7.5 mg PO BID 03/04/18 Nifedipine [Nifedical Xl] 60 mg PO BID 03/04/18 Spironolactone 25 mg PO DAILY 03/04/18 Aspirin [Aspirin EC] 325 mg PO DAILY 03/06/18 Atorvastatin Calcium [Lipitor] 40 mg PO BEDTIME 03/06/18 Famotidine 20 mg PO BID 03/06/18 Ferrous Sulfate 325 mg PO TID 03/06/18 Hydralazine HCl [Hydralazine Hydrochloride] 50 mg PO TID 03/06/18 Insulin Glargine [Lantus Solostar] 20 unit SC DAILY@0700 03/06/18 Insulin Glargine [Lantus Solostar] 22 unit SC BEDTIME 03/06/18 Insulin Lispro [Humalog] See Protocol SC ACHS 03/06/18 Loratadine 10 mg PO DAILY 03/06/18 Losartan Potassium 50 mg PO BID 03/06/18 Multiple Vitamin [Multi Vitamin] 1 tablet PO DAILY 03/06/18 cloNIDine PATCH 0.2 MG/24HR [Gsdsbhha-KBN-8 Patch] 0.3 mg TOP WKLY 03/06/18 Cyclobenzaprine HCl [Flexeril] 10 mg PO TID PRN tab 03/09/18 HYDROcodone 5MG/APAP 325MG [Shoshone 5/325] 1 ea PO Q4H PRN tab 03/09/18 Pregabalin [Lyrica] 100 mg PO TID cap 03/09/18 Cyanocobalamin [Vitamin B-12] 1,500 mcg PO DAILY 04/01/18 Nystatin Powder 15 gm TOP QID 04/01/18 Potassium Chloride [Potassium Chloride ER] 20 meq PO DAILY 04/01/18 Tamsulosin HCl [Flomax] 0.4 mg PO DAILY 04/01/18 glipiZIDE EXTENDED REL (XL) [Glucotrol XL] 5 mg PO BIDAC 04/01/18 Decision To Admit - Decistion To Admit Decision to Admit Reason: Medical Nature Decision to Admit Date: 06/17/19 Decision to Admit Time: 15:49
--- NOTE | 2019-06-17 16:06 | HP ---
SUPERVISING PHYSICIAN: Dennis Harris MD CHIEF COMPLAINT: Worsening shortness of breath, fever. HISTORY OF PRESENT ILLNESS: Mr. Garza is a 59-year-old, male patient that presented to the Emergency Room due to fever and productive cough that started this morning. He also noted he had a mild sore throat. He has a history of asthma and is not O2 dependent. It was noted in the Emergency Room that his saturations were in the mid-80s off any oxygen. He was given several breathing treatments, which did increase his oxygenation level. His workup included CBC that showed white count of 16,800 with a left shift. Chemistries showed mildly low potassium at 3.2. Otherwise, electrolytes were within normal limits. BUN slightly elevated at 21. Lactic acid was normal at 1.2. Bilirubin was slightly elevated at 1.2. Liver functions were all within normal limits. CPK was elevated slightly at 217. Chest x-ray per radiologic interpretation showed normal one-view chest. He also has a long history of left sided cellulitis and chronic wounds to the lower extremity from obesity, edema and chronic immobility. He has had several infections with polymicrobial results and has been on antibiotics in the past. He also is diabetic and has noted multiple areas of intertrigo related to poor skin care. In the Emergency Room, he was given a dose of prednisone, breathing treatment and oxygen and showed improvement. He is now going to be placed in observation for further treatment of asthma exacerbation. He was also given vancomycin for his lower extremity cellulitis which apparently is chronic, but uncertain at this point if it is resulting in the increase of his white count. He did have a fever in the Emergency Room of 101.4. His flu swabs were all negative. He was placed in observation in stable condition. PAST MEDICAL HISTORY: 1. Asthma. 2. Degenerative lumbar disease. 3. Hypertension. 4. Diabetes mellitus, type 2, on insulin therapy. 5. Hyperlipidemia. 6. Morbid obesity. 7. Previous cerebrovascular accident with mild residual right sided weakness. PAST SURGICAL HISTORY: 1. Back surgery. OUTPATIENT MEDICATIONS: 1. Flomax 0.4 mg daily. 2. Lyrica 100 mg t.i.d. 3. Potassium chloride 20 mEq daily. 4. Nystatin 15 grams q.i.d. as needed. 5. Multivitamin tablet daily. 6. Meloxicam 7.5 mg b.i.d. 7. Magnesium oxide tablet 1 tablet daily. 8. Loratadine 10 mg daily. 9. Labetalol 600 mg b.i.d. 10. Irbesartan 300 mg daily. 11. Humalog sliding scale. 12. Lantus 22 units at bedtime. 13. Lantus 20 units daily. 14. Hydralazine 100 mg b.i.d. 15. Lasix 40 mg b.i.d. 16. Ferrous sulfate 325 mg b.i.d. 17. Lipitor 40 mg at bedtime. 18. Aspirin 325 mg daily. 19. Norvasc 10 mg daily. 20. Allopurinol 300 mg daily. ALLERGIES: MULTIPLE ALLERGIES INCLUDING CEPHALOSPORINS, LINCOMYCIN, TERRAMYCIN OINTMENT, POLYMYXIN B, PENICILLINS. FAMILY HISTORY: Noncontributory. SOCIAL HISTORY: The patient is a retired building guard deputy sheriff. He does live alone. He denies any tobacco, illicit drug or alcohol usage. REVIEW OF SYSTEMS: CONSTITUTIONAL: Positive for general malaise, fever, increasing fatigue. HEENT: Positive for nasal congestion, sore throat. Negative for earaches. RESPIRATORY: Positive for increasing cough, shortness of breath and wheezing. CARDIOVASCULAR: Negative for chest pain, palpitations or syncopal episodes. GASTROINTESTINAL: Negative for nausea, vomiting, diarrhea, constipation or abdominal pain. GENITOURINARY: Negative for dysuria, hematuria, polyuria. MUSCULOSKELETAL: Positive for general body aches. SKIN: Positive for chronic changes in lower extremities with an area of cellulitis to the left leg which is chronic and positive intertrigo areas which are chronic to various body regions. NEUROLOGIC: Positive for anxiety and headaches. Denies seizures, ataxia or focal motor deficits. HEMATOLOGIC: Denies bruising, unexplained bleeding or transfusion reaction. PHYSICAL EXAMINATION: VITAL SIGNS: Temperature on admission was 100.4. Pulse 100. Blood pressure 140/65. Respirations 20. Oxygen saturation 96% on nasal cannula at rest. Admission weight was 154 kg. GENERAL: Generally, the patient overall is unkept. He has a strong body odor, but is in no acute distress. HEENT: Notable nasal congestion and some mild pharyngeal erythema, but oropharynx is pink and moist without lesions. NECK: Supple, nontender with full range of motion. No jugular venous distention noted. RESPIRATORY: Lung sounds are notable for some very faint inspiratory and expiratory wheezing and diminished diffusely. CARDIOVASCULAR: Regular rate and rhythm without any appreciable murmurs, gallops, or rubs. ABDOMEN: Morbidly obese, nontender. Positive bowel sounds. RECTAL: Deferred. BACK: Without notable CVA or vertebral tenderness. EXTREMITIES: No notable edema bilaterally, but there is an area of excoriation to the left lateral aspect of the calf with just some serous drainage. NEUROLOGIC: Cranial nerves II-XII are grossly intact. Facial features are symmetrical. Extraocular movements are within normal limits. There is no nystagmus noted. SKIN: Intertrigo to the abdominal folds and excoriation to the left lateral aspect with some serous drainage, no obvious purulent fluid or any signs of abscess formation LABORATORY: White count 16,800, hemoglobin 12.3, hematocrit 37.4, platelet count 229,000. Differential does show a left shift. Chemistries show sodium 140, potassium low at 3.2, BUN 21, creatinine 1.1. Blood sugar 151. Serum osmolality 152. Liver functions within normal limits. Troponin was normal at 0.04. MICROBIOLOGY: Influenza A and B by PCR was negative. Blood cultures pending. RADIOLOGY: Chest x-ray per radiologic interpretation shows normal single view chest. ASSESSMENT: 1. Acute exacerbation of asthma. 2. Leukocytosis with a fever concerning for sepsis, etiology uncertain at this point whether it is lower extremity or related to possibly developing pneumonia or just upper respiratory viral infection although he tested negative for the flu. 3. Electrolyte imbalance to include hypokalemia, likely due to chronic Lasix usage. 4. Type 2 diabetes mellitus on insulin therapy. 5. Cellulitis of the left lower extremity, likely chronic with polymicrobial organisms in the past including serratia marcescens and methicillin-resistant Staphylococcus aureus secondary to chronic stasis, poor mobility and complicated by obesity with no obvious signs of abscess formation. 6. Yeast infection of the abdomen, likely chronic, with poorly controlled diabetes. 7. Morbid obesity. 8. Hypertension. 9. History of previous cerebrovascular accident with reported residual right sided weakness although not detected on this admission. PLAN: Mr. Garza is going to be admitted for initiation of aggressive bronchial hygiene, breathing treatments for his asthma exacerbation. We will start him on some vancomycin for treatment of cellulitis and reassess his labs in the morning. He will be on DVT protocol with Lovenox. We will put him on insulin sliding per protocol. He will be on an 1800 calorie ADA diet. We will provide supplemental oxygen as needed. We will hold off on any fluids at this time. We will resume his medications once they are updated and verified as appropriate to care. I would expect his length of stay to be about 1 to 2 days, but possibly be able to discharge tomorrow. Until then, we will continue to monitor and treat as needed. #[id number] [facility]
[2019-06-17] MEDS ORDERED: ACETAMINOPHEN 325 MG TAB PO PRN (18:16)
[2019-06-17] MEDS ORDERED: ALBUTEROL SULFATE 2.5 MG/3 ML VIAL NEB PRN (18:16)
[2019-06-17] MEDS ORDERED: DEXTROSE 10% 500ML IVPB PRN (18:16)
[2019-06-17] MEDS ORDERED: GLUCAGON INJ 1 MG VIAL SUBCU PRN (18:16)
[2019-06-17] MEDS ORDERED: SODIUM CHLORIDE 0.9% (FLUSH) 10 ML SYG IV PRN (18:16)
[2019-06-17] MEDS ORDERED: NON-FORMULARY MEDICATION 1 EA MIS (Amlodipine Besylate [Norvasc] 10 MG) PO SCH (18:30)
[2019-06-17] MEDS ORDERED: LABETALOL 200 MG TAB ONE (19:10)
[2019-06-17] MEDS ORDERED: FUROSEMIDE 40 MG TAB ONE (19:10)
[2019-06-17] MEDS ORDERED: ATORVASTATIN 20 MG TAB PO ONE (19:10)
[2019-06-17] MEDS ORDERED: amLODIPine BESYLATE 5 MG TAB ONE (19:11)
[2019-06-17] MEDS: IRBESARTAN 300 MG PO SCH (19:26)
[2019-06-17] MEDS: TAMSULOSIN 0.4 MG CAP PO SCH (19:28)
[2019-06-17] MEDS: ALLOPURINOL 300 MG TAB PO SCH (19:28)
[2019-06-17] MEDS: IV SET AND CAP CHANGE INJ INJ SCH (19:28)
[2019-06-17] MEDS ORDERED: SODIUM CHLORIDE 0.9% 1000ML 0 ML ONE (21:00)
[2019-06-17] MEDS ORDERED: NON-FORMULARY MEDICATION 1 EA MIS (Atorvastatin Calcium [Lipitor] 40 MG) PO SCH (21:00)
[2019-06-17] MEDS ORDERED: HYDRALAZINE HCL 100 MG PO SCH (21:00)
[2019-06-17] MEDS ORDERED: FUROSEMIDE 40 MG TAB PO SCH (21:00)
[2019-06-17] MEDS ORDERED: LABETALOL HCL 600 MG PO SCH (21:00)
[2019-06-17] MEDS: ENOXAPARIN SODIUM 40 MG/0.4 ML SYG SUBCU SCH (21:04)
[2019-06-17] MEDS: INSULIN LISPRO 100 UNITS/ML PEN SUBCU SCH (21:05)
[2019-06-17] MEDS: MELOXICAM 7.5 MG TAB PO SCH (21:06)
[2019-06-17] MEDS: PREGABALIN 100 MG CAP PO SCH (21:07)
[2019-06-17] MEDS: IPRATROPIUM/ALBUTEROL 3 ML VIAL INH SCH (21:31)
[2019-06-18] MEDS: INSULIN LISPRO 100 UNITS/ML PEN SUBCU SCH ×4 (07:12→21:01)
[2019-06-18] MEDS ORDERED: VANCOMYCIN PER PHARMACY INJ SCH (08:00)
[2019-06-18] MEDS: IPRATROPIUM/ALBUTEROL 3 ML VIAL INH SCH ×4 (08:34→20:10)
[2019-06-18] MEDS: amLODIPine BESYLATE 5 MG TAB PO SCH (09:06)
[2019-06-18] MEDS: LABETALOL 200 MG TAB PO SCH ×2 (09:07→20:24)
[2019-06-18] MEDS: ALLOPURINOL 300 MG TAB PO SCH (09:07)
[2019-06-18] MEDS: MAGNESIUM OXIDE 400 MG TAB PO SCH (09:07)
[2019-06-18] MEDS: TAMSULOSIN 0.4 MG CAP PO SCH (09:07)
[2019-06-18] MEDS: PREGABALIN 100 MG CAP PO SCH ×3 (09:08→20:24)
[2019-06-18] MEDS: FUROSEMIDE 40 MG TAB PO SCH ×2 (09:08→16:51)
[2019-06-18] MEDS: LORATADINE 10 MG TAB PO SCH (09:08)
[2019-06-18] MEDS: ASPIRIN (ENTERIC COATED) 325 MG TAB PO SCH (09:08)
[2019-06-18] MEDS: MELOXICAM 7.5 MG TAB PO SCH ×2 (09:08→20:24)
[2019-06-18] MEDS ORDERED: SODIUM CHLORIDE 0.9% 500ML 500 ML ONE ×2 (09:10→19:15)
[2019-06-18] MEDS ORDERED: VANCOMYCIN HCL INJ 1,000 MG VIAL IVPB ONE ×2 (09:10→19:15)
[2019-06-18] MEDS: VANCOMYCIN HCL INJ 2,000 MG in SODIUM CHLORIDE 0.9% 500ML 500 ML IVPB SCH ×2 (09:14→21:09)
[2019-06-18] MEDS: POTASSIUM CHLORIDE 20 MEQ TAB PO SCH (09:14)
[2019-06-18] MEDS: IRBESARTAN 300 MG PO SCH (09:14)
--- NOTE | 2019-06-18 11:24 | RAD ---
Study: Frontal and Lateral Radiographs of the Chest. Indication: Pneumonia Comparison: June 17, 2019 Impression: Heart size normal. Lungs clear. No acute osseous abnormality. Electronically signed by: Wilfred Forrest MD 06/18/2019 11:23 AM [facility]
[2019-06-18] MEDS: NYSTATIN POWDER 15GM BTTL TOP SCH ×4 (11:59→20:28)
[2019-06-18] MEDS ORDERED: SODIUM CHLORIDE 0.45% 1000ML 1,000 ML IVS ONE (12:52)
[2019-06-18] MEDS ORDERED: BENZOCAINE-MENTH LOZ (CEPACOL) 1 EA LOZ MT ONE (13:20)
--- NOTE | 2019-06-18 13:24 | PN ---
SUPERVISING PHYSICIAN: Dennis Harris MD DATE: 06/18/19 SUBJECTIVE: The patient is sitting on the side of the bed. He is very weak and has difficulty moving around, especially with his left leg. He does not complain of shortness of breath or chest pain, just extreme fatigue. He also has a history of constipation. He says he just does not have bowel movements very frequently and it has been a chronic problem for years. OBJECTIVE: VITAL SIGNS: Temperature 98.7. Heart rate 71. Blood pressure 124/77. Respiratory rate 20 to 22. O2 saturation 93% on 2 liters nasal cannula. RESPIRATORY: Diminished breath sounds throughout. CARDIAC: Regular rate and rhythm. GASTROINTESTINAL: Abdomen is soft, nondistended, nontender. Bowel sounds are positive. EXTREMITIES: He continues to have erythema to the left lower leg. The bottom 1/3 of the leg, the edema is circumferential with multiple crusty patches on it, but there is no obvious drainage or fluctuance. The erythema extends up to the posterior portion of his calf as well as the lateral side. It is very to palpation of the lower portion of the leg. It is also edematous. Bilateral pedal pulses are palpable at +2. NEUROLOGIC: Awake, alert and oriented times three. LABORATORY: WBCs 15,800, hemoglobin 12.2, hematocrit 37.8. He has a left shift on his differential. His electrolytes are somewhat stabilized with the exception of his calcium is 8.3. His blood sugars have run between 151 and 270. BUN elevated at 24. Preliminary blood cultures are negative to date. Wound culture is pending. Chest x-ray shows heart size normal, lung clear, no osseous abnormality. ASSESSMENT: 1. Sepsis related to left lower leg cellulitis with admitting temperature of 101.4, respiratory rate of 22 and white blood cell count 16,800. 2. Acute exacerbation of asthma. 3. Leukocytosis with a fever concerning for sepsis, etiology uncertain at this point whether it is lower extremity or related to possibly developing pneumonia or just upper respiratory viral infection although he tested negative for the flu. 4. Electrolyte imbalance to include hypokalemia, likely due to chronic Lasix usage. 5. Type 2 diabetes mellitus on insulin therapy. 6. Cellulitis of the left lower extremity, likely chronic with polymicrobial organisms in the past including serratia marcescens and methicillin-resistant Staphylococcus aureus secondary to chronic stasis, poor mobility and complicated by obesity with no obvious signs of abscess formation. 7. Yeast infection of the abdomen, likely chronic, with poorly controlled diabetes. 8. Morbid obesity. 9. Hypertension. 10. History of previous cerebrovascular accident with reported residual right sided weakness although not detected on this admission. PLAN: We will continue present supportive care including his present antibiotics. We will wait until to ask Dr. Lazo, infectious diseases in [place], about her recommendation for outpatient therapy. I have ordered labs for in the morning. I have also give him some MiraLAX daily. Encourage good pulmonary hygiene. We will continue to monitor the patient closely and follow as needed. #[id number] [facility]
[2019-06-18] MEDS: POLYETHYLENE GLYCOL 3350 17 GM PCKT PO SCH (13:41)
[2019-06-18] MEDS: ATORVASTATIN 20 MG TAB PO SCH (20:23)
[2019-06-18] MEDS: ENOXAPARIN SODIUM 40 MG/0.4 ML SYG SUBCU SCH (20:24)
[2019-06-19] MEDS: IPRATROPIUM/ALBUTEROL 3 ML VIAL INH SCH ×4 (08:26→20:15)
[2019-06-19] MEDS: INSULIN LISPRO 100 UNITS/ML PEN SUBCU SCH ×4 (08:42→21:31)
[2019-06-19] MEDS ORDERED: SODIUM CHLORIDE 0.9% 500ML 500 ML ONE ×3 (08:46→20:57)
[2019-06-19] MEDS ORDERED: VANCOMYCIN HCL INJ 1,000 MG VIAL IVPB ONE ×3 (08:47→20:58)
[2019-06-19] MEDS: LABETALOL 200 MG TAB PO SCH ×2 (09:21→21:32)
[2019-06-19] MEDS: PREGABALIN 100 MG CAP PO SCH ×3 (09:21→21:33)
[2019-06-19] MEDS: ASPIRIN (ENTERIC COATED) 325 MG TAB PO SCH (09:21)
[2019-06-19] MEDS: LORATADINE 10 MG TAB PO SCH (09:22)
[2019-06-19] MEDS: FUROSEMIDE 40 MG TAB PO SCH ×2 (09:22→17:31)
[2019-06-19] MEDS: TAMSULOSIN 0.4 MG CAP PO SCH (09:22)
[2019-06-19] MEDS: amLODIPine BESYLATE 5 MG TAB PO SCH (09:22)
[2019-06-19] MEDS: MELOXICAM 7.5 MG TAB PO SCH ×2 (09:22→21:32)
[2019-06-19] MEDS: IRBESARTAN 300 MG PO SCH (09:23)
[2019-06-19] MEDS: POTASSIUM CHLORIDE 20 MEQ TAB PO SCH (09:23)
[2019-06-19] MEDS: VANCOMYCIN HCL INJ 2,000 MG in SODIUM CHLORIDE 0.9% 500ML 500 ML IVPB SCH ×2 (09:24→21:34)
[2019-06-19] MEDS: POLYETHYLENE GLYCOL 3350 17 GM PCKT PO SCH (09:24)
[2019-06-19] MEDS: ALLOPURINOL 300 MG TAB PO SCH (09:35)
[2019-06-19] MEDS: NYSTATIN POWDER 15GM BTTL TOP SCH ×4 (09:46→21:34)
[2019-06-19] MEDS: MAGNESIUM OXIDE 400 MG TAB PO SCH (09:46)
--- NOTE | 2019-06-19 15:19 | PN ---
DATE: 06/19/19 SUPERVISING PHYSICIAN: DEX SARKAR MD SUBJECTIVE: The patient is lying in bed. He does not have his leg elevated and I have encouraged him to keep that left leg elevated. His only complaint is that he has constipation and he has been unable to go to the bathroom. He denies shortness of breath, chest pain, nausea or vomiting. OBJECTIVE: VITAL SIGNS: Temperature 98.4. Heart rate 92. Blood pressure 139/76. Respiratory rate 16. O2 saturation 98% on 1 liter nasal cannula. RESPIRATORY: Diminished breath sounds throughout, otherwise clear to auscultation. CARDIAC: Regular rate and rhythm. GASTROINTESTINAL: Abdomen is soft, obese, nondistended, nontender. Bowel sounds are positive. EXTREMITIES: The erythema on the left lower leg is improved. It continues to be circumferential but is on the lower portion of the leg around the ankle area where there is some serous type drainage from the wound but there is no fluctuance. The edema is less than yesterday, although his left leg is more edematous than his right leg. Bilateral pedal pulses are palpable at +2. NEUROLOGIC: Awake, alert and oriented times three. LABORATORY: WBCs have finally normalized to 10,100, hemoglobin 11.1, hematocrit 34. His differential is within normal limits. Blood glucose has run between 170 and 180. His electrolytes are basically within normal limits except calcium is slightly low at 7.9. His preliminary blood cultures showed no growth after 24 hours. All other labs and films have been reviewed via the EMR. ASSESSMENT: 1. Sepsis related to left lower leg cellulitis with admitting temperature of 101.4, respiratory rate of 22 and white blood cell count 16,800. 2. Acute exacerbation of asthma. 3. Leukocytosis with a fever concerning for sepsis, etiology uncertain at this point whether it is lower extremity or related to possibly developing pneumonia or just upper respiratory viral infection although he tested negative for the flu. 4. Electrolyte imbalance to include hypokalemia, likely due to chronic Lasix usage. 5. Type 2 diabetes mellitus on insulin therapy. 6. Cellulitis of the left lower extremity, likely chronic with polymicrobial organisms in the past including serratia marcescens and methicillin-resistant Staphylococcus aureus secondary to chronic stasis, poor mobility and complicated by obesity with no obvious signs of abscess formation. 7. Yeast infection of the abdomen, likely chronic, with poorly controlled diabetes. 8. Morbid obesity. 9. Hypertension. 10. History of previous cerebrovascular accident with reported residual right sided weakness although not detected on this admission. PLAN: We will continue present supportive care including his present antibiotics. His clinical condition is improved. I will call Dr. Lazo, infectious diseases in [place], and get her recommendation for outpatient antibiotic therapy. I will hold on any labs for now. I have ordered 2 doses of milk of magnesia in addition to his daily MiraLAX. At this point, I recommended he go home on daily MiraLAX. He may need some additional milk of magnesia tomorrow as well as an abdominal x-ray to see how extensive his constipation is. I will decide on that tomorrow. We will continue to monitor the patient closely and follow as needed. #[id number] [facility]
[2019-06-19] MEDS: MAGNESIUM HYDROXIDE 30 ML UD PO SCH ×2 (16:41→17:03)
[2019-06-19] MEDS: ENOXAPARIN SODIUM 40 MG/0.4 ML SYG SUBCU SCH (21:33)
[2019-06-19] MEDS: ATORVASTATIN 20 MG TAB PO SCH (21:33)
[2019-06-20] MEDS: INSULIN LISPRO 100 UNITS/ML PEN SUBCU SCH ×4 (08:02→21:19)
[2019-06-20] MEDS: IPRATROPIUM/ALBUTEROL 3 ML VIAL INH SCH ×4 (08:02→20:10)
[2019-06-20] MEDS ORDERED: VANCOMYCIN HCL INJ 1,000 MG VIAL IVPB ONE ×2 (08:27→19:02)
[2019-06-20] MEDS ORDERED: SODIUM CHLORIDE 0.9% 500ML 500 ML ONE ×2 (08:27→19:01)
[2019-06-20] MEDS: IRBESARTAN 300 MG PO SCH (08:55)
[2019-06-20] MEDS: VANCOMYCIN HCL INJ 2,000 MG in SODIUM CHLORIDE 0.9% 500ML 500 ML IVPB SCH ×2 (08:55→20:48)
[2019-06-20] MEDS: ASPIRIN (ENTERIC COATED) 325 MG TAB PO SCH (08:56)
[2019-06-20] MEDS: amLODIPine BESYLATE 5 MG TAB PO SCH (08:56)
[2019-06-20] MEDS: LABETALOL 200 MG TAB PO SCH ×2 (08:56→20:47)
[2019-06-20] MEDS: POTASSIUM CHLORIDE 20 MEQ TAB PO SCH (08:56)
[2019-06-20] MEDS: LORATADINE 10 MG TAB PO SCH (08:57)
[2019-06-20] MEDS: PREGABALIN 100 MG CAP PO SCH ×3 (08:57→20:47)
[2019-06-20] MEDS: ALLOPURINOL 300 MG TAB PO SCH (08:57)
[2019-06-20] MEDS: FUROSEMIDE 40 MG TAB PO SCH ×2 (08:57→16:49)
[2019-06-20] MEDS: MAGNESIUM OXIDE 400 MG TAB PO SCH (08:57)
[2019-06-20] MEDS: MELOXICAM 7.5 MG TAB PO SCH ×2 (08:57→20:46)
[2019-06-20] MEDS: TAMSULOSIN 0.4 MG CAP PO SCH (08:57)
[2019-06-20] MEDS: NYSTATIN POWDER 15GM BTTL TOP SCH ×4 (08:58→20:48)
[2019-06-20] MEDS: POLYETHYLENE GLYCOL 3350 17 GM PCKT PO SCH (08:58)
[2019-06-20] MEDS: CITALOPRAM HBR 20 MG TAB PO SCH (10:45)
--- NOTE | 2019-06-20 14:00 | PN ---
DATE: 06/20/19 SUPERVISING PHYSICIAN: DEX SARKAR MD SUBJECTIVE: The patient is lying in bed. He has no complaints of nausea or vomiting, diarrhea or constipation. He did have 2 bowel movements overnight. He also feels like his leg is improving. He denies chest pain or shortness of breath. OBJECTIVE: VITAL SIGNS: Temperature 98.1. Heart rate 72. Blood pressure 14899. Respiratory rate 20. O2 saturation 98% on room air. RESPIRATORY: Very diminished breath sounds throughout, otherwise clear to auscultation. CARDIAC: Regular rate and rhythm. GASTROINTESTINAL: Abdomen is soft, obese, nondistended, nontender. Bowel sounds are positive. EXTREMITIES: The edematous and erythematous areas on patient's lower leg are now only on the left lateral portion of that lower left leg. It is much improved since 2 days ago. The draining is minimal. There is no fluctuance. The pedal pulses are palpable at +2. NEUROLOGIC: Awake, alert and oriented times three. LABORATORY: Blood sugars have run between 132 and 171. His preliminary blood cultures showed no growth after 48 hours. His wound culture is pending. All other labs and films have been reviewed via the EMR. ASSESSMENT: 1. Sepsis related to left lower leg cellulitis with admitting temperature of 101.4, respiratory rate of 22 and white blood cell count 16,800. 2. Acute exacerbation of asthma. 3. Leukocytosis with a fever concerning for sepsis, etiology uncertain at this point whether it is lower extremity or related to possibly developing pneumonia or just upper respiratory viral infection although he tested negative for the flu. 4. Electrolyte imbalance to include hypokalemia, likely due to chronic Lasix usage. 5. Type 2 diabetes mellitus on insulin therapy. 6. Cellulitis of the left lower extremity, likely chronic with polymicrobial organisms in the past including serratia marcescens and methicillin-resistant Staphylococcus aureus secondary to chronic stasis, poor mobility and complicated by obesity with no obvious signs of abscess formation. 7. Yeast infection of the abdomen, likely chronic, with poorly controlled diabetes. 8. Morbid obesity. 9. Hypertension. 10. History of previous cerebrovascular accident with reported residual right sided weakness although not detected on this admission. PLAN: We will continue present supportive care including his antibiotics of vancomycin and Zosyn. There was a preliminary gram stain done that showed gram positive and gram negative organisms. For some reason, the culture did not get submitted as usual, most likely due to the holidays and the culture will not be back for a day or so. I spoke with Dr. Lazo, Infectious Disease. and she felt like we should continue on both medications until the cultures come back. We will keep him in the hospital until the cultures have been reported. Most likely, he will need to have outpatient antibiotic therapy after discharge, also, a consultation with [facility] and physical therapy for discharge planning. I will hold on any lab for now as his lab has been stabilized and will continue to monitor the patient closely and follow as needed. #[id number] [facility]
[2019-06-20] MEDS: IV SET AND CAP CHANGE INJ INJ SCH (20:45)
[2019-06-20] MEDS: ENOXAPARIN SODIUM 40 MG/0.4 ML SYG SUBCU SCH (20:46)
[2019-06-20] MEDS: ATORVASTATIN 20 MG TAB PO SCH (20:47)
[2019-06-21] MEDS ORDERED: SODIUM CHLORIDE 0.9% 500ML 500 ML ONE ×2 (07:13→19:11)
[2019-06-21] MEDS ORDERED: VANCOMYCIN HCL INJ 1,000 MG VIAL IVPB ONE ×2 (07:14→19:11)
[2019-06-21] MEDS: INSULIN LISPRO 100 UNITS/ML PEN SUBCU SCH ×4 (07:28→21:21)
[2019-06-21] MEDS: VANCOMYCIN HCL INJ 2,000 MG in SODIUM CHLORIDE 0.9% 500ML 500 ML IVPB SCH ×2 (08:11→21:15)
[2019-06-21] MEDS: POTASSIUM CHLORIDE 20 MEQ TAB PO SCH (08:15)
[2019-06-21] MEDS: ALLOPURINOL 300 MG TAB PO SCH (08:16)
[2019-06-21] MEDS: CITALOPRAM HBR 20 MG TAB PO SCH (08:16)
[2019-06-21] MEDS: MAGNESIUM OXIDE 400 MG TAB PO SCH (08:16)
[2019-06-21] MEDS: MELOXICAM 7.5 MG TAB PO SCH ×2 (08:16→21:14)
[2019-06-21] MEDS: ASPIRIN (ENTERIC COATED) 325 MG TAB PO SCH (08:16)
[2019-06-21] MEDS: LABETALOL 200 MG TAB PO SCH ×2 (08:16→21:14)
[2019-06-21] MEDS: LORATADINE 10 MG TAB PO SCH (08:17)
[2019-06-21] MEDS: TAMSULOSIN 0.4 MG CAP PO SCH (08:17)
[2019-06-21] MEDS: IRBESARTAN 300 MG PO SCH (08:17)
[2019-06-21] MEDS: FUROSEMIDE 40 MG TAB PO SCH ×2 (08:17→16:55)
[2019-06-21] MEDS: NYSTATIN POWDER 15GM BTTL TOP SCH ×4 (08:17→21:16)
[2019-06-21] MEDS: amLODIPine BESYLATE 5 MG TAB PO SCH (08:17)
[2019-06-21] MEDS: PREGABALIN 100 MG CAP PO SCH ×3 (08:17→21:15)
[2019-06-21] MEDS: POLYETHYLENE GLYCOL 3350 17 GM PCKT PO SCH (08:17)
[2019-06-21] MEDS: IPRATROPIUM/ALBUTEROL 3 ML VIAL INH SCH ×4 (08:52→19:46)
[2019-06-21] MEDS: ATORVASTATIN 20 MG TAB PO SCH (21:14)
[2019-06-21] MEDS: ENOXAPARIN SODIUM 40 MG/0.4 ML SYG SUBCU SCH (21:15)
[2019-06-22] MEDS ORDERED: SODIUM CHLORIDE 0.9% 500ML 0 ML ONE (07:28)
[2019-06-22] MEDS ORDERED: VANCOMYCIN HCL INJ 1,000 MG VIAL IVPB ONE ×2 (07:28→19:21)
[2019-06-22] MEDS: VANCOMYCIN HCL INJ 2,000 MG in SODIUM CHLORIDE 0.9% 500ML 500 ML IVPB SCH ×2 (09:00→20:45)
[2019-06-22] MEDS: INSULIN LISPRO 100 UNITS/ML PEN SUBCU SCH ×4 (09:29→21:39)
[2019-06-22] MEDS: ASPIRIN (ENTERIC COATED) 325 MG TAB PO SCH (09:35)
[2019-06-22] MEDS: IPRATROPIUM/ALBUTEROL 3 ML VIAL INH SCH ×4 (09:35→20:00)
[2019-06-22] MEDS: LABETALOL 200 MG TAB PO SCH ×2 (09:35→20:45)
[2019-06-22] MEDS: MAGNESIUM OXIDE 400 MG TAB PO SCH (09:35)
[2019-06-22] MEDS: CITALOPRAM HBR 20 MG TAB PO SCH (09:35)
[2019-06-22] MEDS: MELOXICAM 7.5 MG TAB PO SCH ×2 (09:35→20:44)
[2019-06-22] MEDS: POTASSIUM CHLORIDE 20 MEQ TAB PO SCH (09:35)
[2019-06-22] MEDS: PREGABALIN 100 MG CAP PO SCH ×3 (09:36→20:45)
[2019-06-22] MEDS: ALLOPURINOL 300 MG TAB PO SCH (09:36)
[2019-06-22] MEDS: LORATADINE 10 MG TAB PO SCH (09:36)
[2019-06-22] MEDS: TAMSULOSIN 0.4 MG CAP PO SCH (09:36)
[2019-06-22] MEDS: FUROSEMIDE 40 MG TAB PO SCH ×2 (09:36→17:17)
[2019-06-22] MEDS: amLODIPine BESYLATE 5 MG TAB PO SCH (09:36)
[2019-06-22] MEDS: IRBESARTAN 300 MG PO SCH (09:41)
[2019-06-22] MEDS: NYSTATIN POWDER 15GM BTTL TOP SCH ×4 (09:41→20:53)
[2019-06-22] MEDS: POLYETHYLENE GLYCOL 3350 17 GM PCKT PO SCH (09:41)
--- NOTE | 2019-06-22 09:46 | PN ---
DATE: 06/21/19 SUPERVISING PHYSICIAN: DEX SARKAR MD SUBJECTIVE: The patient seems to be doing a little bit better. His leg still shows an area of cellulitis but is much improved since admission. Still waiting on his cultures. He remains afebrile. He has not had any complaints of chest pain or shortness of breath. He had a little bit of diarrhea. OBJECTIVE: VITAL SIGNS: Temperature 98.1. Heart rate 74. Blood pressure 143/89. Respiratory rate 20. Oxygen saturation 94% on room air. Weight 166 kg. GENERAL: The patient is sitting on the side of the bed eating lunch. He appears to be in no acute distress. CHEST: Lungs sounds are just diminished but otherwise clear. CARDIAC: Regular rate and rhythm with distant heart tones. ABDOMEN: Obese, soft, non-tender, positive bowel sounds. EXTREMITIES: Shows a continued area of erythema to the lateral aspect of his left lower leg with some now scabbing but no obvious drainage or fluctuation. Pulses are 2+ bilaterally. NEUROLOGIC: Alert and oriented times three. LABORATORY: Blood sugars have been fairly stable. White count had normalized on 06/19. BMP today shows creatinine is stable with creatinine to 0.79. All other electrolytes are was negative. MICROBIOLOGY: Still waiting on culture results from the wound. Blood cultures remain negative after 4 days. ASSESSMENT: 1. Sepsis related to left lower leg cellulitis with admitting temperature of 101.4, respiratory rate of 22 and white blood cell count 16,800. 2. Acute exacerbation of asthma. 3. Leukocytosis with a fever concerning for sepsis, etiology uncertain at this point whether it is lower extremity or related to possibly developing pneumonia or just upper respiratory viral infection although he tested negative for the flu. 4. Electrolyte imbalance to include hypokalemia, likely due to chronic Lasix usage. 5. Type 2 diabetes mellitus on insulin therapy. 6. Cellulitis of the left lower extremity, likely chronic with polymicrobial organisms in the past including serratia marcescens and methicillin-resistant Staphylococcus aureus secondary to chronic stasis, poor mobility and complicated by obesity with no obvious signs of abscess formation. 7. Yeast infection of the abdomen, likely chronic, with poorly controlled diabetes. 8. Morbid obesity. 9. Hypertension. 10. History of previous cerebrovascular accident with reported residual right sided weakness although not detected on this admission. PLAN: Will continue with antibiotic coverage with vancomycin and Zosyn as he is showing good improvement and his kidney function is showing to be stable. We will await those culture results. Once those are available, we can plan on discharging either on oral medications or continued antibiotics as appropriate via parenteral delivery. Hopefully, that will be within the next 24 to 48 hours. He will still need to have a physical therapy consultation at some oint as he is weak but should be able to discharge home hopefully by Monday at which time we will again reassess with physical therapy and plan for discharge planning at that time and arrange for antibiotic coverage. Until then, we will continue to monitor and treat as necessary. #[id number] [facility]
--- NOTE | 2019-06-22 16:31 | PN ---
DATE: 06/22/19 SUPERVISING PHYSICIAN: Dennis Harris M.D. SUBJECTIVE: The patient continues to do well. His leg is healing. We are still waiting on cultures. He has not had any other further complaints. OBJECTIVE: VITAL SIGNS: Temperature 97.9, pulse 69, blood pressure 115/72, respirations 20, satting 94% on room air. GENERAL: The patient is resting comfortably. Appears to be in no acute distress. CHEST: Lungs sounds are just diminished but otherwise clear. CARDIAC: Regular rate and rhythm with distant heart tones. ABDOMEN: Obese, soft, non-tender, positive bowel sounds. EXTREMITIES: Shows a continued area of erythema to the lateral aspect of his left lower leg with some now scabbing but no obvious drainage or fluctuation. Pulses are 2+ bilaterally. NEUROLOGIC: Alert and oriented times three. ASSESSMENT: 1. Sepsis related to left lower leg cellulitis with admitting temperature of 101.4, respiratory rate of 22 and white blood cell count 16,800. 2. Acute exacerbation of asthma. 3. Leukocytosis with a fever concerning for sepsis, etiology uncertain at this point whether it is lower extremity or related to possibly developing pneumonia or just upper respiratory viral infection although he tested negative for the flu. 4. Electrolyte imbalance to include hypokalemia, likely due to chronic Lasix usage. 5. Type 2 diabetes mellitus on insulin therapy. 6. Cellulitis of the left lower extremity, likely chronic with polymicrobial organisms in the past including serratia marcescens and methicillin-resistant Staphylococcus aureus secondary to chronic stasis, poor mobility and complicated by obesity with no obvious signs of abscess formation. 7. Yeast infection of the abdomen, likely chronic, with poorly controlled diabetes. 8. Morbid obesity. 9. Hypertension. 10. History of previous cerebrovascular accident with reported residual right sided weakness although not detected on this admission. PLAN: Will continue to await culture results to target antibiotic therapy. His kidney function is showing to be stable. Will need to get a Physical Therapy consultation at some point as well as Social for help with discharge planning, hopefully which will occur by Monday. I anticipate we will probably have to either if we do not go on shelter antibiotic with p.o. medicines will probably need a PICC line for parenteral antibiotics, but will await that final culture result which hopefully will be back by later tomorrow. Until then will continue to monitor and treat as needed. [facility][id number] [facility]
[2019-06-22] MEDS ORDERED: SODIUM CHLORIDE 0.9% 500ML 500 ML ONE (19:20)
[2019-06-22] MEDS: ATORVASTATIN 20 MG TAB PO SCH (20:44)
[2019-06-22] MEDS: ENOXAPARIN SODIUM 40 MG/0.4 ML SYG SUBCU SCH (20:45)
[2019-06-22] MEDS ORDERED: VANCOMYCIN HCL INJ 1,250 MG in SODIUM CHLORIDE 0.9% 250ML 250 ML IVPB SCH (21:32)
[2019-06-22] MEDS ORDERED: SODIUM CHLORIDE 0.9% 250ML 250 ML ONE (21:35)
[2019-06-23] MEDS: INSULIN LISPRO 100 UNITS/ML PEN SUBCU SCH ×4 (07:25→21:21)
[2019-06-23] MEDS: IPRATROPIUM/ALBUTEROL 3 ML VIAL INH SCH ×4 (08:58→21:00)
[2019-06-23] MEDS ORDERED: SODIUM CHLORIDE 0.9% 250ML 250 ML ONE ×2 (09:15→19:55)
[2019-06-23] MEDS ORDERED: VANCOMYCIN HCL INJ 500 MG VIAL ONE ×2 (09:15→19:54)
[2019-06-23] MEDS ORDERED: VANCOMYCIN HCL INJ 1,000 MG VIAL IVPB ONE ×2 (09:16→19:56)
[2019-06-23] MEDS: IRBESARTAN 300 MG PO SCH (10:13)
[2019-06-23] MEDS: CITALOPRAM HBR 20 MG TAB PO SCH (10:13)
[2019-06-23] MEDS: LORATADINE 10 MG TAB PO SCH (10:13)
[2019-06-23] MEDS: ASPIRIN (ENTERIC COATED) 325 MG TAB PO SCH (10:13)
[2019-06-23] MEDS: TAMSULOSIN 0.4 MG CAP PO SCH (10:13)
[2019-06-23] MEDS: MELOXICAM 7.5 MG TAB PO SCH ×2 (10:14→21:14)
[2019-06-23] MEDS: FUROSEMIDE 40 MG TAB PO SCH ×2 (10:14→19:21)
[2019-06-23] MEDS: MAGNESIUM OXIDE 400 MG TAB PO SCH (10:14)
[2019-06-23] MEDS: PREGABALIN 100 MG CAP PO SCH ×3 (10:14→21:14)
[2019-06-23] MEDS: POTASSIUM CHLORIDE 20 MEQ TAB PO SCH (10:14)
[2019-06-23] MEDS: POLYETHYLENE GLYCOL 3350 17 GM PCKT PO SCH (10:14)
[2019-06-23] MEDS: LABETALOL 200 MG TAB PO SCH ×2 (10:15→21:20)
[2019-06-23] MEDS: VANCOMYCIN HCL INJ 1,000 MG, VANCOMYCIN HCL INJ 250 MG in SODIUM CHLORIDE 0.9% 250ML 25... IVPB SCH ×2 (10:15→21:14)
[2019-06-23] MEDS: NYSTATIN POWDER 15GM BTTL TOP SCH ×4 (10:15→21:15)
[2019-06-23] MEDS: amLODIPine BESYLATE 5 MG TAB PO SCH (10:15)
[2019-06-23] MEDS: ALLOPURINOL 300 MG TAB PO SCH (10:15)
[2019-06-23] MEDS ORDERED: SODIUM CHL 0.9% 50ML MIN-BAG+ 50 ML IVPB ONE ×2 (16:21→19:55)
[2019-06-23] MEDS ORDERED: MEROPENEM 1 GM VIAL IVPB ONE ×2 (16:21→19:57)
[2019-06-23] MEDS: MEROPENEM 1 GM in SODIUM CHL 0.9% 50ML MIN-BAG+ 50 ML IVPB SCH ×2 (16:22→23:13)
[2019-06-23] MEDS: IV SET AND CAP CHANGE INJ INJ SCH (19:21)
[2019-06-23] MEDS: ENOXAPARIN SODIUM 40 MG/0.4 ML SYG SUBCU SCH (21:13)
--- NOTE | 2019-06-23 21:13 | PN ---
DATE: 06/23/19 SUPERVISING PHYSICIAN: Dennis Harris M.D. SUBJECTIVE: The patient is not having any complaints. I did discuss with him that we finally got 1 culture back which showed a very resistant Pseudomonas and he would need to be on continued antibiotic coverage with IV. He has not had any chest pains, nausea, vomiting or diarrhea and he remains afebrile. He feels like his leg is not quite as sore as it has been. OBJECTIVE: VITAL SIGNS: Temperature T max 98.2, pulse 62, blood pressure 148/80, respirations 18, satting 96% on 2 liters nasal cannula and 94% on room air. GENERAL: The patient is resting comfortably. Appears to be in no acute distress. CHEST: Remains clear to auscultation. HEART: Regular rate and rhythm. ABDOMEN: Obese but soft, non-tender. Positive bowel sounds. EXTREMITIES: Shows a large area on his lateral aspect of his left lower leg that is dry with some areas of serous drainage around the edges, but no obvious fluctuance or purulent-looking drainage. The erythema is isolated to the immediate area of the cellulitis. The borders have not increased. Wound appears to be healing without major complications. Pulses distally are 2+ bilaterally. NEUROLOGIC: He is alert and oriented times three. MICROBIOLOGY: Culture results from the left leg shows Pseudomonas aeruginosa that shows a fairly sensitive pattern but is resistant to ciprofloxacin and levofloxacin with the patient having allergies to cephalosporins. There is a gram positive also that is growing that is still pending final culture and sensitivity report. ASSESSMENT: 1. Sepsis secondary to cellulitis left leg lower leg with a polymicrobial presentation, both with gram positive cocci and Pseudomonas aeruginosa with the patient initially presenting with 101.4 temperature and white count 16,800 showing improvement with antibiotics currently on vancomycin and Meropenem. 2. Acute exacerbation of asthma, resolved. 3. Leukocytosis and fever due to #1, resolving with antibiotics with no signs of underlying pneumonia more likely his exacerbation of acute asthma was due to a viral infection, although negative for Influenza. 4. Electrolyte imbalance with hypokalemia due to chronic Lasix usage showing to be stable. 5. Type 2 diabetes mellitus on insulin therapy. 6. Yeast infection of the abdomen, likely chronic, with poorly controlled diabetes. 7. Morbid obesity. 8. Hypertension. 9. History of previous cerebrovascular accident with reported residual right sided weakness although not detected on this admission. PLAN: Will continue with vancomycin and add Meropenem to his antibiotic coverage. He is allergic to cephalosporins and the Pseudomonas is resistant to fluoroquinolones. He is also on vancomycin for Methicillin resistant Staphylococcus aureus coverage right now awaiting final culture results, therefore I would avoid Zosyn. He will need at least 14 days of antibiotic coverage and continued wound management, and I discussed with him [facility] care hospital such as [facility] in [place] which he is in agreement to. I will request a Social consultation to see if we can get him approved to go to [facility]. As well, he can see Dr. Lazo, Infectious Disease specialist there as well. Will wait on the final culture results and of course target antibiotic therapy as appropriate. Until we can transition him to a senior care care facility will continue to treat as needed. #[id number] [facility]
[2019-06-23] MEDS: ATORVASTATIN 20 MG TAB PO SCH (21:14)
[2019-06-24] MEDS ORDERED: SODIUM CHL 0.9% 50ML MIN-BAG+ 0 ML IVPB ONE (05:30)
[2019-06-24] MEDS ORDERED: MEROPENEM 1 GM VIAL IVPB ONE ×4 (05:30→20:25)
[2019-06-24] MEDS: MEROPENEM 1 GM in SODIUM CHL 0.9% 50ML MIN-BAG+ 50 ML IVPB SCH ×3 (06:45→22:35)
[2019-06-24] MEDS: INSULIN LISPRO 100 UNITS/ML PEN SUBCU SCH ×4 (07:00→20:49)
[2019-06-24] MEDS ORDERED: SODIUM CHL 0.9% 50ML MIN-BAG+ 50 ML IVPB ONE ×3 (07:31→20:24)
[2019-06-24] MEDS: IPRATROPIUM/ALBUTEROL 3 ML VIAL INH SCH ×4 (08:48→20:13)
[2019-06-24] MEDS ORDERED: SODIUM CHLORIDE 0.9% 250ML 250 ML ONE ×2 (09:43→20:24)
[2019-06-24] MEDS ORDERED: VANCOMYCIN HCL INJ 500 MG VIAL ONE ×2 (09:43→20:23)
[2019-06-24] MEDS ORDERED: VANCOMYCIN HCL INJ 1,000 MG VIAL IVPB ONE ×2 (09:43→20:24)
[2019-06-24] MEDS: POLYETHYLENE GLYCOL 3350 17 GM PCKT PO SCH (09:49)
[2019-06-24] MEDS: LABETALOL 200 MG TAB PO SCH ×2 (09:50→20:49)
[2019-06-24] MEDS: POTASSIUM CHLORIDE 20 MEQ TAB PO SCH (09:50)
[2019-06-24] MEDS: FUROSEMIDE 40 MG TAB PO SCH ×2 (09:50→17:05)
[2019-06-24] MEDS: PREGABALIN 100 MG CAP PO SCH ×3 (09:50→20:49)
[2019-06-24] MEDS: CITALOPRAM HBR 20 MG TAB PO SCH (09:50)
[2019-06-24] MEDS: MELOXICAM 7.5 MG TAB PO SCH ×2 (09:51→20:49)
[2019-06-24] MEDS: amLODIPine BESYLATE 5 MG TAB PO SCH (09:51)
[2019-06-24] MEDS: ASPIRIN (ENTERIC COATED) 325 MG TAB PO SCH (09:51)
[2019-06-24] MEDS: ALLOPURINOL 300 MG TAB PO SCH (09:51)
[2019-06-24] MEDS: TAMSULOSIN 0.4 MG CAP PO SCH (09:51)
[2019-06-24] MEDS: MAGNESIUM OXIDE 400 MG TAB PO SCH (09:51)
[2019-06-24] MEDS: LORATADINE 10 MG TAB PO SCH (09:51)
[2019-06-24] MEDS: VANCOMYCIN HCL INJ 1,000 MG, VANCOMYCIN HCL INJ 250 MG in SODIUM CHLORIDE 0.9% 250ML 25... IVPB SCH ×2 (09:52→20:48)
[2019-06-24] MEDS: IRBESARTAN 300 MG PO SCH (09:52)
[2019-06-24] MEDS: NYSTATIN POWDER 15GM BTTL TOP SCH ×4 (09:52→20:50)
--- NOTE | 2019-06-24 20:14 | PN ---
DATE: 06/24/19 SUPERVISING PHYSICIAN: Blair Rodriguez M.D. SUBJECTIVE: The patient notes his leg is a little sore but no significant complaints. No chest pains. No nausea or vomiting or diarrhea. OBJECTIVE: VITAL SIGNS: Temperature 98.2, pulse 77, blood pressure 144/72, respirations 18, satting 97% on room air. GENERAL: The patient is resting comfortably. Appears to be in no acute distress. CHEST: Remains clear to auscultation. HEART: Regular rate and rhythm. ABDOMEN: Obese but soft, non-tender. Positive bowel sounds. EXTREMITIES: Shows a large area on his lateral aspect of his left lower leg that is dry with some areas of serous drainage around the edges, but no obvious fluctuance or purulent-looking drainage. The erythema is isolated to the immediate area of the cellulitis. The borders have not increased. Wound appears to be healing without major complications. Pulses distally are 2+ bilaterally. NEUROLOGIC: He is alert and oriented times three. MICROBIOLOGY: Staphylococcus species is still pending further sensitivity report. Second organism has been identified and sensitivity is that it grew out Pseudomonas aeruginosa with it being resistant to Levaquin. ASSESSMENT: 1. Sepsis secondary to cellulitis left leg lower leg with a polymicrobial presentation, both with gram positive cocci and Pseudomonas aeruginosa with the patient initially presenting with 101.4 temperature and white count 16,800 showing improvement with antibiotics currently on vancomycin and Meropenem. 2. Acute exacerbation of asthma, resolved. 3. Leukocytosis and fever due to #1, resolving with antibiotics with no signs of underlying pneumonia more likely his exacerbation of acute asthma was due to a viral infection, although negative for Influenza. 4. Electrolyte imbalance with hypokalemia due to chronic Lasix usage showing to be stable. 5. Type 2 diabetes mellitus on insulin therapy. 6. Yeast infection of the abdomen, likely chronic, with poorly controlled diabetes. 7. Morbid obesity. 8. Hypertension. 9. History of previous cerebrovascular accident with reported residual right sided weakness although not detected on this admission. PLAN: Will plan to get a PICC line in place tomorrow and anticipate hopefully being able to discharge to [facility] facility at [facility] in [place] for continued wound management and IV therapy. At this point he is on vancomycin and Meropenem. We are still awaiting final culture results back on the Staphylococcus aureus species. He is certainly on vancomycin awaiting final culture results from the Staph species which more likely will be a Staphylococcus; aureus that is Methicillin resistant as he has a history of it. Will need to contact Dr. Lzao at some point and hopefully within the next 24 to 48 hours we can transfer him to [facility]. Until we can transition to prison care facility will continue to monitor and treat as needed. [facility][id number] [facility]
[2019-06-24] MEDS: ATORVASTATIN 20 MG TAB PO SCH (20:49)
[2019-06-24] MEDS: ENOXAPARIN SODIUM 40 MG/0.4 ML SYG SUBCU SCH (20:50)
[2019-06-25] MEDS ORDERED: MEROPENEM 1 GM VIAL IVPB ONE ×2 (06:42→07:27)
[2019-06-25] MEDS ORDERED: SODIUM CHL 0.9% 50ML MIN-BAG+ 0 ML IVPB ONE (06:42)
[2019-06-25] MEDS: MEROPENEM 1 GM in SODIUM CHL 0.9% 50ML MIN-BAG+ 50 ML IVPB SCH (06:45)
[2019-06-25] MEDS ORDERED: SODIUM CHLORIDE 0.9% 250ML 250 ML ONE (07:25)
[2019-06-25] MEDS ORDERED: VANCOMYCIN HCL INJ 500 MG VIAL ONE (07:25)
[2019-06-25] MEDS ORDERED: SODIUM CHL 0.9% 50ML MIN-BAG+ 50 ML IVPB ONE (07:26)
[2019-06-25] MEDS ORDERED: VANCOMYCIN HCL INJ 1,000 MG VIAL IVPB ONE (07:27)
[2019-06-25] MEDS: IPRATROPIUM/ALBUTEROL 3 ML VIAL INH SCH (08:20)
--- NOTE | 2019-06-25 08:32 | RAD ---
EXAM DESCRIPTION: Chest,1 View CLINICAL HISTORY: 59 years Male, PICC placement COMPARISON: Previous chest x-ray June 18, 2019 TECHNIQUE: AP portable chest. FINDINGS: Heart size is large with increased pulmonary vascularity. Moderate vascular congestion is a new development since the previous study and the heart appears larger as well. Central line from the left upper extremity with tip in the mid to lower superior vena cava. No consolidating infiltrate. No pulmonary mass or worrisome nodule. No pneumothorax or pleural effusion. Bones are unremarkable. IMPRESSION: Large heart with moderate vascular congestion. Electronically signed by: Franco Solis MD 06/25/2019 8:30 AM [facility]
[2019-06-25] MEDS: INSULIN LISPRO 100 UNITS/ML PEN SUBCU SCH ×2 (08:35→11:39)
[2019-06-25] MEDS: POLYETHYLENE GLYCOL 3350 17 GM PCKT PO SCH (08:49)
[2019-06-25] MEDS: PREGABALIN 100 MG CAP PO SCH (08:49)
[2019-06-25] MEDS: FUROSEMIDE 40 MG TAB PO SCH (08:49)
[2019-06-25] MEDS: ASPIRIN (ENTERIC COATED) 325 MG TAB PO SCH (08:49)
[2019-06-25] MEDS: TAMSULOSIN 0.4 MG CAP PO SCH (08:50)
[2019-06-25] MEDS: ALLOPURINOL 300 MG TAB PO SCH (08:50)
[2019-06-25] MEDS: amLODIPine BESYLATE 5 MG TAB PO SCH (08:50)
[2019-06-25] MEDS: MELOXICAM 7.5 MG TAB PO SCH (08:50)
[2019-06-25] MEDS: POTASSIUM CHLORIDE 20 MEQ TAB PO SCH (08:50)
[2019-06-25] MEDS: CITALOPRAM HBR 20 MG TAB PO SCH (08:50)
[2019-06-25] MEDS: LORATADINE 10 MG TAB PO SCH (08:50)
[2019-06-25] MEDS: LABETALOL 200 MG TAB PO SCH (08:50)
[2019-06-25] MEDS: MAGNESIUM OXIDE 400 MG TAB PO SCH (08:50)
[2019-06-25] MEDS: NYSTATIN POWDER 15GM BTTL TOP SCH (08:51)
[2019-06-25] MEDS: IRBESARTAN 300 MG PO SCH (08:51)
[2019-06-25] MEDS: VANCOMYCIN HCL INJ 1,000 MG, VANCOMYCIN HCL INJ 250 MG in SODIUM CHLORIDE 0.9% 250ML 25... IVPB SCH (08:51)
[2019-06-25 13:26] VITALS: BP 156/75; TEMP 98.2; O2SAT 95
--- NOTE | 2019-06-26 12:06 | DS ---
SUPERVISING PHYSICIAN: Blair Rodriguez MD DISCHARGE DIAGNOSES: 1. Sepsis secondary to cellulitis left leg lower leg with a polymicrobial presentation, both with gram positive cocci and Pseudomonas aeruginosa with the patient initially presenting with 101.4 temperature and white count 16,800 showing improvement with antibiotics currently on vancomycin and Meropenem. 2. Acute exacerbation of asthma, resolved. 3. Leukocytosis and fever due to #1, resolving with antibiotics with no signs of underlying pneumonia more likely his exacerbation of acute asthma was due to a viral infection, although negative for Influenza. 4. Electrolyte imbalance with hypokalemia due to chronic Lasix usage showing to be stable. 5. Type 2 diabetes mellitus on insulin therapy. 6. Yeast infection of the abdomen, likely chronic, with poorly controlled diabetes. 7. Morbid obesity. 8. Hypertension. 9. History of previous cerebrovascular accident with reported residual right sided weakness although not detected on this admission. HISTORY OF PRESENT ILLNESS: This is is a 59-year-old male patient who presented to the Emergency Room due to fever and productive cough that started the morning of his admission. He also had a mild sore throat. He has a history of asthma and is not oxygen dependent. In the Emergency Room his saturations were in the mid-80s off any oxygen. He was given several breathing treatments which did increase his oxygenation level. His workup included CBC that showed white count of 16,800 with a left shift on his differential. Chemistries showed mildly low potassium at 3.2. Otherwise, electrolytes were within normal limits. BUN was slightly elevated at 21. Lactic acid was normal at 1.2. Bilirubin was slightly elevated at 1.2. Liver functions were all within normal limits. CPK was elevated at 217. Chest x-ray showed normal one-view chest. He has a long history of left- sided cellulitis and chronic wounds to the lower extremity from obesity, edema and chronic immobility. He has had several infections with polymicrobial results and has been on antibiotics in the past with multiple admissions. He also is diabetic and has noted multiple areas of intertrigo related to poor skin care. In the Emergency Room, he was given a dose of prednisone, breathing treatments and oxygen and showed some improvement. He was initially placed in observation for further treatment of asthma exacerbation. He was also given vancomycin for his lower extremity cellulitis which apparently is chronic but uncertain at this point if it is resulting in the increase of his white count. He had a fever in the Emergency Room of 101.4. His flu swabs were negative. He was placed in observation in stable condition. HOSPITAL COURSE: Aggressive pulmonary hygiene was initiated both p.r.n. and scheduled nebulizer treatments. His vancomycin was continued and his lab was monitored closely for DVT prophylaxis with Lovenox, a.c. and h.s. insulin per sliding scale. During the initial part of his stay he was very weak and had difficulty moving around. He was also treated for constipation. Dr. Lazo, Infectious Disease physician in [place], was also consulted via telephone and his primary diagnosis was changed from exacerbation of asthma to sepsis relating to the left lower leg cellulitis. His antibiotics were continued with vancomycin but Zosyn was added as the initial gram stain showed gram positive and gram negative organisms. Dr. Lazo felt that he wished him to continue on both medications until the cultures come back and he was to stay in the hospital until those were reported. There were no other complaints of shortness of breath or nausea or vomiting. His kidney function remained stable and his stay was delayed due to pending culture results. He had a physical therapy consultation and social work consultation for discharge planning. It was decided that he needed a PICC line for parenteral antibiotics. One of the cultures was returned and had a very resistant Pseudomonas and would need to continue antibiotic coverage with IV antibiotics. Meropenem was added to his antibiotic coverage. His Pseudomonas was resistant to fluoroquinolones. The vancomycin was continued for methicillin-resistant staph aureus. It was discussed with Dr. Lazo that he would need long-term hospital care such as [facility] in [place]. He has agreed to that. He will also see Dr. Lazo as a patient. His final cultures have not been resulted but it was felt he could be transported to [facility] in [place] for continued antibiotic coverage and his culture results could be sent to that hospital when available. A PICC line was placed this morning in the patient's arm and he will be transported to [facility] via ambulance. LABORATORY: His WBC started at 16,800 and normalized to 10.100. His hemoglobin and hematocrit remained at 11.1 and 34. He had a left shift on his differential that normalized. His blood sugars ran between 113 and 270. His electrolytes were mostly within normal limits. His blood cultures showed no growth after 5 days. His second chest x-ray showed heart size normal, lungs clear, no acute osseous abnormality. His final chest x-ray for PICC line placement showed enlarged heart with moderate vascular congestion, central line from the left upper lobe with tip in the mid to lower superior vena cava. All other labs and films have been reviewed via the EMR. DISCHARGE PLAN: The patient will be discharged to [facility] in [place] for further antibiotic therapy. He is in stable condition. He is to resume his previous diabetic diet and increase his activity as tolerated. He is to followup with Dr. Harris within one to two weeks after discharge from [facility]. I will touch base with Dr. Lazo to let her know that the patient is at [facility] and that I will send her the culture results as they become available. When he returns to [place], for any problems or complications he can contact Dr. Harris's office or come to the hospital. DISCHARGE MEDICATIONS: 1. Meloxicam. 2. Furosemide. 3 Loratadine. 4. Lantus. 5. Ferrous sulfate. 6. Hydralazine. 7. Humalog insulin with sliding scale protocol. 8. Aspirin. 9. Atorvastatin. 10. Multivitamins. 11. Lyrica. 12. Nystatin. 13. Tamsulosin. 14. Potassium chloride. 15. Irbesartan. 16. Allopurinol. 17. Labetalol. 18. Mag oxide. 19. Amlodipine. 20. Citalopram. 21. Duoneb. 22. Merrem. 23. Vancomycin. #[id number]
== END 2019-06-25 12:30 | DRG 872 ==
LOC: ER 13:28 → MS 16:05 → OBSVTOIN 06-18 09:38
PROVIDERS: ADMIT Nurse Practitioner Family; ATTEND Nurse Practitioner Acute Care
PROC: 02HV33Z Insertion of Infusion Device into Superior Vena Cava, Percutaneous Approach (ICD-10-PCS; principal; 2019-06-25)
DX: A41.9 Sepsis, unspecified organism (principal); L03.116 Cellulitis of left lower limb; J45.901 Unspecified asthma with (acute) exacerbation; I69.351 Hemiplegia and hemiparesis following cerebral infarction affecting right dominant side; Z16.30 Resistance to unspecified antimicrobial drugs; E87.6 Hypokalemia; E11.9 Type 2 diabetes mellitus without complications; B37.2 Candidiasis of skin and nail; B96.5 Pseudomonas (aeruginosa) (mallei) (pseudomallei) as the cause of diseases classified elsewhere; I10 Essential (primary) hypertension; T50.1X5A Adverse effect of loop [high-ceiling] diuretics, initial encounter; L30.4 Erythema intertrigo; K59.00 Constipation, unspecified; E78.5 Hyperlipidemia, unspecified; M51.36 Other intervertebral disc degeneration, lumbar region; E66.01 Morbid (severe) obesity due to excess calories; Y92.9 Unspecified place or not applicable; Z79.82 Long term (current) use of aspirin; Z79.4 Long term (current) use of insulin; Z79.1 Long term (current) use of non-steroidal anti-inflammatories (NSAID); Z79.899 Other long term (current) drug therapy; Z88.1 Allergy status to other antibiotic agents; Z88.0 Allergy status to penicillin

== ENCOUNTER → 2019-11-07 | Outpatient (CLI) | payer BC | LOC: LAB.O 13:10 | PROVIDERS: ATTEND Family Medicine | DX: I10 Essential (primary) hypertension (principal); E11.40 Type 2 diabetes mellitus with diabetic neuropathy, unspecified; E78.2 Mixed hyperlipidemia ==

== ENCOUNTER → 2020-02-25 | Outpatient (CLI) | payer BC | LOC: LAB.NP 11:20 | PROVIDERS: ATTEND Family Medicine | DX: I50.9 Heart failure, unspecified (principal) ==

== ENCOUNTER → 2020-04-13 | Outpatient (CLI) | payer BC | LOC: LAB.NP 11:48 | PROVIDERS: ATTEND Family Medicine | DX: E11.40 Type 2 diabetes mellitus with diabetic neuropathy, unspecified (principal) ==

== ENCOUNTER → 2020-06-08 | Outpatient (CLI) | payer BC | LOC: GMA MATASK 11:14 | PROVIDERS: ATTEND Family Medicine | DX: E11.40 Type 2 diabetes mellitus with diabetic neuropathy, unspecified (principal) ==